=== PATIENT | female | born 1975 | race Caucasian/White ===

== ENCOUNTER 2016-12-04 08:48 | Emergency (ER) | payer OTHER ==
[2016-12-04] MEDS ORDERED: SODIUM CHLORIDE 0.9% 1,000 ML IV STA (09:57)
[2016-12-04] MEDS ORDERED: METOCLOPRAMIDE 5 MG/ML 2 ML VIAL IVP STA (09:57)
[2016-12-04] MEDS ORDERED: DICYCLOMINE 10 MG/ML 2 ML AMP IM STA (09:57)
[2016-12-04] MEDS ORDERED: RX INFO: IV CONTRAST WAS GIVEN 1 EACH MISC MISCELLANE PRN (10:01)
--- NOTE | 2016-12-04 10:01 | ED ---
Abdominal Pain HPI - General Chief Complaint: Abdominal Pain Stated Complaint: Abd pain Time Seen by Provider: 12/04/16 09:52 Source: patient, RN notes reviewed Mode of arrival: ambulatory Limitations: no limitations - History of Present Illness Initial Comments: 41 yo female presents to the ER with of nausea vomiting diarrhea. Patient states this started on Friday night. Patient states she had a crampy like sensation in her abdomen and has had diarrhea multiple times since. Patient denies any blood in the diarrhea. Patient states she's also had nausea and one episode of vomiting but she does continue to be nauseous. Patient states she is not eating anything different and strange. Patient states that she has had her gallbladder out. Patient states that she was concerned due to the increased pain and the nausea as well as the diarrhea so she thought that she should be seen. Patient denies any fever or chills with this. Patient states no Jose the house has similar symptoms. Patient states that her pain is moderate more in the left upper quadrant with a fullness type sensation. Patient denies any recent fever, chills, shortness of breath, chest pain, back pain,vomiting, numbness or tingling, dysuria or hematuria, constipation, headaches or visual changes, or any other current symptoms. - Related Data Home Medications Medication Instructions Recorded Confirmed Verapamil HCl [Verapamil ER] 180 mg PO DAILY 03/27/15 12/04/16 Ranitidine HCl [Zantac] 150 mg PO BID 12/06/15 12/04/16 ALPRAZolam [Xanax] 1 mg PO DAILY PRN 12/04/16 12/04/16 HYDROcodone/APAP 5-325MG [[place] 1 tab PO Q4HR PRN 12/04/16 12/04/16 5-325] Ibuprofen [Motrin] 800 mg PO Q6HR PRN 12/04/16 12/04/16 Loperamide [Imodium] 2 mg PO TID PRN 12/04/16 12/04/16 Losartan/Hydrochlorothiazide 1 tab PO DAILY 12/04/16 12/04/16 [Losartan-Hctz 100-12.5 mg Tab] Multivitamins, Thera [Multivitamin] 1 tab PO DAILY 12/04/16 12/04/16 metFORMIN HCL ER [Glucophage Xr] 500 mg PO DAILY 12/04/16 12/04/16 tiZANidine HCL [Zanaflex] 4 mg PO BID PRN 12/04/16 12/04/16 Previous Rx's Medication Instructions Recorded Propranolol [Inderal] 20 mg PO BID tab 12/07/15 Dicyclomine [Bentyl] 10 mg PO TID #20 capsule 12/04/16 Metoclopramide [Reglan] 10 mg PO ACHS #10 tab 12/04/16 Allergies Allergy/AdvReac Type Severity Reaction Status Date / Time Sulfa (Sulfonamide Allergy Unknown Verified 12/04/16 09:50 Antibiotics) Childhood Review of Systems ROS Statement: Those systems with pertinent positive or pertinent negative responses have been documented in the HPI. ROS Other: All systems not noted in ROS Statement are negative. Past Medical History Past Medical History: Asthma, Hypertension, Mitral Valve Prolapse (MVP) Additional Past Medical History / Comment(s): irregular heart beat History of Any Multi-Drug Resistant Organisms: None Reported Past Surgical History: Section, Cholecystectomy, Orthopedic Surgery Additional Past Surgical History / Comment(s): irregular heart beat, cervical c4 ,5,6,7 Past Anesthesia/Blood Transfusion Reactions: Motion Sickness Additional Past Anesthesia/Blood Transfusion Reaction / Comment(s): CLAUSTERPHOBIA Past Psychological History: Anxiety, Bipolar, Depression Additional Psychological History / Comment(s): PT STATED SHE IS MAINTAINED ON HER MEDS Smoking Status: Former smoker Past Alcohol Use History: Occasional Additional Past Alcohol Use History / Comment(s): QUIT SMOKING 2013 Past Drug Use History: None Reported - Past Family History Father Family Medical History: Myocardial Infarction ([place]), Thyroid Disorder Mother Family Medical History: COPD, Diabetes Mellitus, Hypertension General Exam - General Exam Comments Initial Comments: General: The patient is awake and alert, in no distress, and does not appear acutely ill. Eye: Pupils are equal, round and reactive to light, extra-ocular movements are intact; there is normal conjunctiva bilaterally. No signs of icterus. Ears, nose, mouth and throat: There are moist mucous membranes. Neck: The neck is supple, there is no tenderness. Cardiovascular: There is a regular rate and rhythm. No murmur, rub or gallop is appreciated. Respiratory: Lungs are clear to auscultation, respirations are non-labored, breath sounds are equal. No wheezes, stridor, rales, or rhonchi. Gastrointestinal: Soft, non-distended, non-tender abdomen without masses or organomegaly noted. There is no rebound or guarding present. No CVA tenderness. Bowel sounds are unremarkable. Back: There is no tenderness to palpation in the midline. There is no obvious deformity. No rashes noted. Musculoskeletal: Normal ROM, no tenderness, There is no pedal edema. There is no calf tenderness or swelling. Sensation intact. Pulses equal bilaterally 2+. Neurological: CN II-XII intact, There are no obvious motor or sensory deficits. Coordination appears grossly intact. Speech is normal. Skin: Skin is warm and dry and no rashes or lesions are noted. Psychiatric: Cooperative, appropriate mood & affect, normal judgment. Limitations: no limitations Course Vital Signs 12/04/16 12/04/16 09:29 11:01 Temperature 97.7 F 97.9 F Pulse Rate 74 95 Respiratory 20 14 Rate Blood Pressure 146/85 145/71 O2 Sat by Pulse 98 99 Oximetry Medical Decision Making - Medical Decision Making 41-year-old female presents emergency Department chief complaint of abdominal pain nausea vomiting diarrhea. At this time patient is reassessed in the room and states that she is feeling much better. At this time patient's CAT scan is reviewed that does show anterolateral otitis. At this time we discussed we will start patient on Bentyl as well as nausea medication. We discussed return parameters and follow-up. Patient stated that she understood she states that she is feeling much better at this time. She will be discharged home. - Lab Data Result diagrams: 12/04/16 10:19 12/04/16 10:19 Lab Results 12/04/16 12/04/16 12/04/16 Range/Units 10:00 10:00 10:19 WBC (3.8-10.6) k/uL RBC (3.80-5.40) m/uL Hgb (11.4-16.0) gm/dL Hct (34.0-46.0) % MCV (80.0-100.0) fL MCH (25.0-35.0) pg MCHC (31.0-37.0) g/dL RDW (11.5-15.5) % Plt Count (150-450) k/uL Neutrophils % % Lymphocytes % % Monocytes % % Eosinophils % % Basophils % % Neutrophils # (1.3-7.7) k/uL Lymphocytes # (1.0-4.8) k/uL Monocytes # (0-1.0) k/uL Eosinophils # (0-0.7) k/uL Basophils # (0-0.2) k/uL Sodium 140 (137-145) mmol/L Potassium 3.7 (3.5-5.1) mmol/L Chloride 105 (98-107) mmol/L Carbon Dioxide 24 (22-30) mmol/L Anion Gap 11 mmol/L BUN 9 (7-17) mg/dL Creatinine 0.68 (0.52-1.04) mg/dL Est GFR (MDRD) Af Amer >60 (>60 ml/min/1.73 sqM) Est GFR (MDRD) Non-Af >60 (>60 ml/min/1.73 sqM) Glucose 154 H (74-99) mg/dL Calcium 9.3 (8.4-10.2) mg/dL Total Bilirubin 1.8 H (0.2-1.3) mg/dL AST 367 H (14-36) U/L ALT 207 H (9-52) U/L Alkaline Phosphatase 118 (38-126) U/L Total Protein 7.0 (6.3-8.2) g/dL Albumin 4.0 (3.5-5.0) g/dL Amylase <30 L (30-110) U/L Lipase 191 (23-300) U/L Urine Color Yellow Urine Appearance Clear (Clear) Urine pH 5.0 (5.0-8.0) Ur Specific [place] 1.007 (1.001-1.035) Urine Protein Negative (Negative) Urine Glucose (UA) Negative (Negative) Urine Ketones Negative (Negative) Urine Blood Negative (Negative) Urine Nitrate Negative (Negative) Urine Bilirubin Negative (Negative) Urine Urobilinogen <2.0 (<2.0) mg/dL Ur Leukocyte Esterase Negative (Negative) Urine HCG, Qual Not Detected (Not Detectd) 12/04/16 Range/Units 10:19 WBC 5.5 (3.8-10.6) k/uL RBC 4.54 (3.80-5.40) m/uL Hgb 13.1 (11.4-16.0) gm/dL Hct 38.9 (34.0-46.0) % MCV 85.7 (80.0-100.0) fL MCH 28.7 (25.0-35.0) pg MCHC 33.5 (31.0-37.0) g/dL RDW 13.3 (11.5-15.5) % Plt Count 290 (150-450) k/uL Neutrophils % 59 % Lymphocytes % 30 % Monocytes % 5 % Eosinophils % 2 % Basophils % 1 % Neutrophils # 3.2 (1.3-7.7) k/uL Lymphocytes # 1.7 (1.0-4.8) k/uL Monocytes # 0.3 (0-1.0) k/uL Eosinophils # 0.1 (0-0.7) k/uL Basophils # 0.0 (0-0.2) k/uL Sodium (137-145) mmol/L Potassium (3.5-5.1) mmol/L Chloride (98-107) mmol/L Carbon Dioxide (22-30) mmol/L Anion Gap mmol/L BUN (7-17) mg/dL Creatinine (0.52-1.04) mg/dL Est GFR (MDRD) Af Amer (>60 ml/min/1.73 sqM) Est GFR (MDRD) Non-Af (>60 ml/min/1.73 sqM) Glucose (74-99) mg/dL Calcium (8.4-10.2) mg/dL Total Bilirubin (0.2-1.3) mg/dL AST (14-36) U/L ALT (9-52) U/L Alkaline Phosphatase (38-126) U/L Total Protein (6.3-8.2) g/dL Albumin (3.5-5.0) g/dL Amylase (30-110) U/L Lipase (23-300) U/L Urine Color Urine Appearance (Clear) Urine pH (5.0-8.0) Ur Specific [place] (1.001-1.035) Urine Protein (Negative) Urine Glucose (UA) (Negative) Urine Ketones (Negative) Urine Blood (Negative) Urine Nitrate (Negative) Urine Bilirubin (Negative) Urine Urobilinogen (<2.0) mg/dL Ur Leukocyte Esterase (Negative) Urine HCG, Qual (Not Detectd) - Radiology Data Radiology results: report reviewed, image reviewed Disposition Clinical Impression: Enteritis Disposition: HOME SELF-CARE Condition: Stable Instructions: Gastroenteritis (ED) Additional Instructions: Please use medication as discussed. Please follow up with family doctor if symptoms have not improved over the next two days. Please return to the emergency room if your symptoms increase or worsen or for any other concerns. Prescriptions: Dicyclomine [Bentyl] 10 mg PO TID #20 capsule Metoclopramide [Reglan] 10 mg PO ACHS #10 tab Referrals: Bertha Paulino MD [Primary Care Provider] - 1-2 days Time of Disposition: 12:14
[2016-12-04 10:36] LABS: Basophils % (A) 1 %; CHCM 35.2; Eosinophils # (A) 0.1 k/uL (0-0.7); Eosinophils % (A) 2 %; HCT 38.9 % (34.0-46.0); HDW 3.37; HGB 13.1 gm/dL (11.4-16.0); Luc # (Auto) 0.16; Luc % (Auto) 3; Lymphocytes # (A) 1.7 k/uL (1.0-4.8); Lymphocytes % (A) 30 %; MCH 28.7 pg (25.0-35.0); MCHC 33.5 g/dL (31.0-37.0); MCV 85.7 fL (80.0-100.0); Mean Platelet Volume 6.5; Monocytes # (A) 0.3 k/uL (0-1.0); Monocytes % (A) 5 %; Neutrophils # (A) 3.2 k/uL (1.3-7.7); Neutrophils % (A) 59 %; RBC 4.54 m/uL (3.80-5.40); RDW 13.3 % (11.5-15.5); WBC 5.5 k/uL (3.8-10.6); WBC (Perox) 5.59
[2016-12-04 10:38] LABS: Appearance,Urine Clear (Clear); Bilirubin,Urine Negative (Negative); Glucose,Urine (UA) Negative (Negative); Ketones,Urine Negative (Negative); Leukocyte Esterase,Urine Negative (Negative); Nitrite,Urine Negative (Negative); Protein,Urine Negative (Negative); Specific Gravity,Urine 1.007 (1.001-1.035); UA Billing (MACRO vs. MICRO) CHEM; Urobilinogen,Urine <2.0 mg/dL (<2.0)
[2016-12-04 10:46] LABS: ALT 207 U/L (9-52); AST 367 U/L (14-36); Alkaline Phosphatase 118 U/L (38-126); Amylase <30 U/L (30-110); Anion Gap 11 mmol/L; Blood Urea Nitrogen 9 mg/dL (7-17); Calcium 9.3 mg/dL (8.4-10.2); Carbon Dioxide 24 mmol/L (22-30); Chloride 105 mmol/L (98-107); Glucose 154 mg/dL (74-99); Non-African American GFR(MDRD) >60 (>60 ml/min/1.73 sqM); Potassium 3.7 mmol/L (3.5-5.1); Sodium 140 mmol/L (137-145); Total Bilirubin 1.8 mg/dL (0.2-1.3)
--- NOTE | 2016-12-04 11:49 | CT ---
EXAMINATION TYPE: CT abdomen pelvis w con DATE OF EXAM: 12/04/2016 11:38 AM COMPARISON: NONE HISTORY: 41-year-old female with mid abdomen pain radiating to the left. TECHNIQUE: Contiguous axial scanning of the abdomen and pelvis following administration of 100 ml Omn ipaque 300 IV contrast. Delayed images through the kidneys and coronal/sagittal reconstructions perf ormed. CT DLP: 2207.4 mGycm Automated exposure control for dose reduction was used. FINDINGS: Heart is normal size without pericardial effusion. Lung bases clear without pleural effusion. The liver is borderline enlarged at 17.8 cm. No focal liver lesion seen. No biliary ductal dilatation . Cholecystectomy clips are present. Adrenal glands, kidneys, spleen, and pancreas are within normal limits. No dilated small bowel, free fluid, or free air. Normal appendix. Scattered mild stool without torrey lonic inflammatory change Numerous nonenlarged and borderline to mildly enlarged mesenteric lymph nodes measuring up to 8 mm. There is a small fatty umbilical hernia. Bladder is urine distended. Uterus and both ovaries are visualized. There is a prominent 9 mm left pe rirectal lymph node. No abnormal fluid collection in the pelvis or other pelvic lymphadenopathy seen. Bones: Degenerative changes in the lumbar spine with the greatest degenerative disc disease at L3-L4 with disc bulge narrowing the spinal canal. No osseous destructive process. IMPRESSION: 1. NUMEROUS NONENLARGED AND BORDERLINE TO MILDLY ENLARGED MESENTERIC LYMPH NODES MEASURING UP TO 8 MM ARE PROBABLY REACTIVE/POST INFLAMMATORY SUCH FROM AN ENTERITIS OR MESENTERIC ADENITIS. 2. SMALL FATTY UMBILICAL HERNIA. 3. BORDERLINE HEPATOMEGALY. THERE MAY BE SOME UNDERLYING FATTY INFILTRATION.
[2016-12-04 12:32] VITALS: BP 160/96; PULSE 76; RESP 16; TEMP 97.8
== END 2016-12-04 12:38 | disposition home or self-care (01) ==
LOC: EC 08:48
DX: K52.9 Noninfective gastroenteritis and colitis, unspecified (principal); I34.1 Nonrheumatic mitral (valve) prolapse; K42.9 Umbilical hernia without obstruction or gangrene; I10 Essential (primary) hypertension; I49.9 Cardiac arrhythmia, unspecified; Z88.2 Allergy status to sulfonamides; Z79.84 Long term (current) use of oral hypoglycemic drugs; Z87.891 Personal history of nicotine dependence; Z79.899 Other long term (current) drug therapy
CPT/HCPCS: 99284; 96372; 96374; 96361; 36415; 80053; 82150; 83690; 85025; 81003; 81025; 87040; 87086; 74177; J0500; J2765; Q9967

== ENCOUNTER → 2017-08-29 | Outpatient (CLI) | payer OTHER ==
[2017-08-29 20:48] LABS: Blood Urea Nitrogen 17 mg/dL (7-17); Non-African American GFR(MDRD) >60 (>60 ml/min/1.73 sqM)
--- NOTE | 2017-08-29 23:31 | MR ---
EXAMINATION TYPE: MR cervical spine wo/w con DATE OF EXAM: 08/29/2017 COMPARISON: 07/14/2014 HISTORY: Cervicalgia TECHNIQUE: Multiplanar, multisequence images of the cervical spine were acquired utilizing 12 mL intravenous Felix avist gadolinium contrast. Diffusion weighted imaging was performed. Vertebra have normal alignment. There is metal artifact from the multilevel anterior fusion surgery t hat obscures the bony detail. I see no focal bone destruction. On the T2 images there is very subtle increased signal in the cervical spinal cord at C5-C6 level. I see no discrete mass in the cord. There is posterior disc bulging at C3-4. There is no spinal stenosi s. There is no cervical paraspinal mass. The contrast images show no pathologic enhancement. Brainste m appears normal. IMPRESSION: Multilevel fusion surgery. There is evidence of mild myelomalacia in the cervical spinal cord at C5-C 6 level similar to old exam. There is relief of the spinal stenosis at C4-5 C5-6 C6-7 since last exam before the surgery. There is new mild posterior disc herniation at C3-4. There is adequate spinal canal and no significan t spinal stenosis seen at C3-4. The canal however is narrowed to 7 mm. There is small posterior left-sided disc herniation at T1-T2 that appears stable.
== END | disposition home or self-care (01) ==
LOC: RADMRIMAIN 20:02
PROVIDERS: ATTEND Nurse Practitioner Acute Care
DX: M48.02 Spinal stenosis, cervical region (principal); M50.21 Other cervical disc displacement, high cervical region; M96.1 Postlaminectomy syndrome, not elsewhere classified; G95.89 Other specified diseases of spinal cord; Z98.1 Arthrodesis status
CPT/HCPCS: 82565; 84520; 72156; A9581

== ENCOUNTER → 2018-01-15 | Outpatient (CLI) | payer OTHER ==
[2018-01-15 10:09] LABS: Basophils # (A) 0.1 k/uL (0-0.2); Basophils % (A) 1 %; Eosinophils # (A) 0.2 k/uL (0-0.7); Eosinophils % (A) 3 %; HCT 41.6 % (34.0-46.0); HGB 14.3 gm/dL (11.4-16.0); Lymphocytes # (A) 3.2 k/uL (1.0-4.8); Lymphocytes % (A) 48 %; MCH 29.9 pg (25.0-35.0); MCHC 34.3 g/dL (31.0-37.0); MCV 87.1 fL (80.0-100.0); Mean Platelet Volume 6.6; Monocytes # (A) 0.4 k/uL (0-1.0); Monocytes % (A) 6 %; Neutrophils # (A) 2.7 k/uL (1.3-7.7); Neutrophils % (A) 40 %; Platelet Count 316 k/uL (150-450); RBC 4.77 m/uL (3.80-5.40); RDW 13.1 % (11.5-15.5); WBC 6.7 k/uL (3.8-10.6)
[2018-01-15 10:32] LABS: ALT 28 U/L (9-52); AST 19 U/L (14-36); Albumin 4.1 g/dL (3.5-5.0); Alkaline Phosphatase 72 U/L (38-126); Anion Gap 12 mmol/L; Blood Urea Nitrogen 13 mg/dL (7-17); Calcium 9.8 mg/dL (8.4-10.2); Carbon Dioxide 28 mmol/L (22-30); Chloride 100 mmol/L (98-107); Glucose 182 mg/dL (74-99); Potassium 3.8 mmol/L (3.5-5.1); Sodium 140 mmol/L (137-145); Total Bilirubin 0.4 mg/dL (0.2-1.3)
[2018-01-15 10:48] LABS: T4, Free (Free Thyroxine) 1.68 ng/dL (0.78-2.19)
[2018-01-15 16:34] LABS: Rheumatoid Factor 6 IU/mL (0-15)
== END | disposition home or self-care (01) ==
LOC: LABWHC1 09:32
PROVIDERS: ATTEND Psychiatry & Neurology Neurology
DX: M13.0 Polyarthritis, unspecified (principal); E11.65 Type 2 diabetes mellitus with hyperglycemia; E55.9 Vitamin D deficiency, unspecified
CPT/HCPCS: 36415; 80053; 82306; 82607; 83036; 84439; 84443; 84481; 85025; 86038; 86431

== ENCOUNTER 2018-06-30 10:44 | Emergency (ER) | payer OTHER ==
[2018-06-30 11:12] VITALS: RESP 18
[2018-06-30] MEDS ORDERED: ASPIRIN 81 MG PO STA (11:24)
[2018-06-30] MEDS ORDERED: NITROGLYCERIN SL TABS 0.4 MG TAB SUBLINGUAL STA ×3 (11:24)
--- NOTE | 2018-06-30 11:28 | ED ---
General Adult HPI - General Chief complaint: Chest Pain Stated complaint: chest pain Time Seen by Provider: 06/30/18 11:14 Source: patient, RN notes reviewed Mode of arrival: ambulatory Limitations: no limitations - History of Present Illness Initial comments: Patient is a pleasant 43-year-old female presenting to the emergency department with complaints of chest discomfort. Patient has had discomfort of her lower chest and upper abdomen region for the past 5 days. Discomfort has been moderate and currently is rated 6/10. Discomfort is hard to describe. No associated dyspnea, nausea, or diaphoresis. Patient sometimes states positions me make it worse or deep breaths. This morning patient had more tightness in her upper chest with mild associated dyspnea and tingling of her left arm. That has now resolved. No history of similar symptoms previously. - Related Data Home Medications Medication Instructions Recorded Confirmed Ranitidine HCl [Zantac] 150 mg PO BID 12/06/15 06/30/18 Losartan/Hydrochlorothiazide 1 tab PO DAILY 12/04/16 06/30/18 [Losartan-Hctz 100-12.5 mg Tab] Multivitamins, Thera [Multivitamin] 1 tab PO DAILY 12/04/16 06/30/18 metFORMIN HCL ER [Glucophage Xr] 500 mg PO DAILY 12/04/16 06/30/18 HYDROcodone/APAP 7.5-325MG [[place] 1 tab PO TID PRN 06/30/18 06/30/18 7.5-325] Ibuprofen [Motrin] 800 mg PO TID PRN 06/30/18 06/30/18 Verapamil HCl [Verapamil ER] 240 mg PO DAILY 06/30/18 06/30/18 cloNIDine HCL [Catapres] 0.1 mg PO BID 06/30/18 06/30/18 Previous Rx's Medication Instructions Recorded Propranolol [Inderal] 20 mg PO BID tab 12/07/15 Allergies Allergy/AdvReac Type Severity Reaction Status Date / Time Sulfa (Sulfonamide Allergy Unknown Verified 06/30/18 11:24 Antibiotics) Childhood Review of Systems ROS Statement: Those systems with pertinent positive or pertinent negative responses have been documented in the HPI. ROS Other: All systems not noted in ROS Statement are negative. Constitutional: Denies: fever Eyes: Denies: eye pain ENT: Denies: throat pain Respiratory: Denies: cough Cardiovascular: Reports: chest pain Endocrine: Denies: fatigue Gastrointestinal: Reports: as per HPI. Denies: vomiting Genitourinary: Denies: dysuria Musculoskeletal: Denies: back pain Skin: Denies: rash Neurological: Denies: weakness Past Medical History Past Medical History: Asthma, Hypertension, Mitral Valve Prolapse (MVP) Additional Past Medical History / Comment(s): irregular heart beat History of Any Multi-Drug Resistant Organisms: None Reported Past Surgical History: Section, Cholecystectomy, Orthopedic Surgery Additional Past Surgical History / Comment(s): irregular heart beat, cervical c4 ,5,6,7 Past Anesthesia/Blood Transfusion Reactions: Motion Sickness Additional Past Anesthesia/Blood Transfusion Reaction / Comment(s): CLAUSTERPHOBIA Past Psychological History: Anxiety, Bipolar, Depression Smoking Status: Current some day smoker Past Alcohol Use History: Occasional Past Drug Use History: None Reported - Past Family History Father Family Medical History: Myocardial Infarction ([place]), Thyroid Disorder Mother Family Medical History: COPD, Diabetes Mellitus, Hypertension General Exam Limitations: no limitations General appearance: alert, in no apparent distress Head exam: Present: atraumatic Eye exam: Present: normal appearance, PERRL ENT exam: Present: normal oropharynx Neck exam: Present: normal inspection Respiratory exam: Present: normal lung sounds bilaterally. Absent: chest wall tenderness Cardiovascular Exam: Present: regular rate, normal rhythm Expanded Peripheral pulses: 2+: Radial (R), Radial (L), Dorsalis Pedis (R), Dorsalis Pedis (L) GI/Abdominal exam: Present: soft, tenderness (Mild tenderness in the epigastric region), normal bowel sounds. Absent: distended, guarding, rebound, rigid, pulsatile mass Extremities exam: Present: normal inspection. Absent: pedal edema, calf tenderness Neurological exam: Present: alert Psychiatric exam: Present: normal affect, normal mood Skin exam: Present: normal color Course Vital Signs 06/30/18 06/30/18 06/30/18 10:46 11:11 11:54 Temperature 98.4 F Pulse Rate 74 72 72 Pulse Rate [ 73 [employer] ] Respiratory 16 18 18 Rate Blood Pressure 129/79 138/83 126/67 O2 Sat by Pulse 98 99 96 Oximetry EKG Findings - EKG Comments: EKG Findings:: Normal sinus rhythm 70. IN 136. QRS 92. QT 422. QTC 445. Normal axis. Normal QRS. No acute ST change. Downward QRS and T-wave in lead V5, possibly Placement. Medical Decision Making - Medical Decision Making Patient reevaluated and resting comfortably in bed. Symptoms did significantly improved with nitroglycerin. Patient updated on results and plan. Case was discussed in detail with Dr. Torres, who will admit for Dr. Paulino. - Lab Data Result diagrams: 06/30/18 11:10 06/30/18 11:10 Lab Results 06/30/18 06/30/18 06/30/18 Range/Units 11:10 11:10 11:10 WBC 6.6 (3.8-10.6) k/uL RBC 4.48 (3.80-5.40) m/uL Hgb 13.5 (11.4-16.0) gm/dL Hct 39.4 (34.0-46.0) % MCV 87.9 (80.0-100.0) fL MCH 30.1 (25.0-35.0) pg MCHC 34.2 (31.0-37.0) g/dL RDW 13.6 (11.5-15.5) % Plt Count 281 (150-450) k/uL Neutrophils % 53 % Lymphocytes % 32 % Monocytes % 6 % Eosinophils % 6 % Basophils % 1 % Neutrophils # 3.5 (1.3-7.7) k/uL Lymphocytes # 2.1 (1.0-4.8) k/uL Monocytes # 0.4 (0-1.0) k/uL Eosinophils # 0.4 (0-0.7) k/uL Basophils # 0.0 (0-0.2) k/uL PT (9.0-12.0) sec INR (<1.2) APTT (22.0-30.0) sec D-Dimer (<0.60) mg/L FEU Sodium 140 (137-145) mmol/L Potassium 3.9 (3.5-5.1) mmol/L Chloride 108 H (98-107) mmol/L Carbon Dioxide 24 (22-30) mmol/L Anion Gap 8 mmol/L BUN 12 (7-17) mg/dL Creatinine 0.50 L (0.52-1.04) mg/dL Est GFR (CKD-EPI)AfAm >90 (>60 ml/min/1.73 sqM) Est GFR (CKD-EPI)NonAf >90 (>60 ml/min/1.73 sqM) Glucose 147 H (74-99) mg/dL Calcium 9.4 (8.4-10.2) mg/dL Magnesium 1.7 (1.6-2.3) mg/dL Total Bilirubin 0.6 (0.2-1.3) mg/dL AST 23 (14-36) U/L ALT 38 (9-52) U/L Alkaline Phosphatase 49 (38-126) U/L Total Creatine Kinase 71 (30-135) U/L CK-MB (CK-2) 0.9 (0.0-2.4) ng/mL CK-MB (CK-2) Rel Index 1.3 Troponin I <0.012 (0.000-0.034) ng/mL Total Protein 6.4 (6.3-8.2) g/dL Albumin 3.8 (3.5-5.0) g/dL Amylase 51 (30-110) U/L Lipase 183 (23-300) U/L 06/30/18 Range/Units 11:10 WBC (3.8-10.6) k/uL RBC (3.80-5.40) m/uL Hgb (11.4-16.0) gm/dL Hct (34.0-46.0) % MCV (80.0-100.0) fL MCH (25.0-35.0) pg MCHC (31.0-37.0) g/dL RDW (11.5-15.5) % Plt Count (150-450) k/uL Neutrophils % % Lymphocytes % % Monocytes % % Eosinophils % % Basophils % % Neutrophils # (1.3-7.7) k/uL Lymphocytes # (1.0-4.8) k/uL Monocytes # (0-1.0) k/uL Eosinophils # (0-0.7) k/uL Basophils # (0-0.2) k/uL PT 9.7 (9.0-12.0) sec INR 1.0 (<1.2) APTT 22.7 (22.0-30.0) sec D-Dimer 0.39 (<0.60) mg/L FEU Sodium (137-145) mmol/L Potassium (3.5-5.1) mmol/L Chloride (98-107) mmol/L Carbon Dioxide (22-30) mmol/L Anion Gap mmol/L BUN (7-17) mg/dL Creatinine (0.52-1.04) mg/dL Est GFR (CKD-EPI)AfAm (>60 ml/min/1.73 sqM) Est GFR (CKD-EPI)NonAf (>60 ml/min/1.73 sqM) Glucose (74-99) mg/dL Calcium (8.4-10.2) mg/dL Magnesium (1.6-2.3) mg/dL Total Bilirubin (0.2-1.3) mg/dL AST (14-36) U/L ALT (9-52) U/L Alkaline Phosphatase (38-126) U/L Total Creatine Kinase (30-135) U/L CK-MB (CK-2) (0.0-2.4) ng/mL CK-MB (CK-2) Rel Index Troponin I (0.000-0.034) ng/mL Total Protein (6.3-8.2) g/dL Albumin (3.5-5.0) g/dL Amylase (30-110) U/L Lipase (23-300) U/L - Radiology Data Radiology results: image reviewed (Chest and abdominal x-ray revealed no acute process.) Disposition Clinical Impression: Chest pain Disposition: ADMITTED IP TO THIS HOSP Is patient prescribed a controlled substance at d/c from ED?: No Referrals: Bertha Paulino MD [Primary Care Provider] - 1-2 days Decision Time: 13:24
[2018-06-30 11:35] LABS: Basophils % (A) 1 %; Eosinophils # (A) 0.4 k/uL (0-0.7); Eosinophils % (A) 6 %; HCT 39.4 % (34.0-46.0); HGB 13.5 gm/dL (11.4-16.0); Lymphocytes # (A) 2.1 k/uL (1.0-4.8); Lymphocytes % (A) 32 %; MCH 30.1 pg (25.0-35.0); MCHC 34.2 g/dL (31.0-37.0); MCV 87.9 fL (80.0-100.0); Mean Platelet Volume 6.9; Monocytes # (A) 0.4 k/uL (0-1.0); Monocytes % (A) 6 %; Neutrophils # (A) 3.5 k/uL (1.3-7.7); Neutrophils % (A) 53 %; Platelet Count 281 k/uL (150-450); RBC 4.48 m/uL (3.80-5.40); RDW 13.6 % (11.5-15.5); WBC 6.6 k/uL (3.8-10.6)
[2018-06-30 11:46] LABS: ALT 38 U/L (9-52); AST 23 U/L (14-36); Albumin 3.8 g/dL (3.5-5.0); Alkaline Phosphatase 49 U/L (38-126); Amylase 51 U/L (30-110); Anion Gap 8 mmol/L; Blood Urea Nitrogen 12 mg/dL (7-17); Calcium 9.4 mg/dL (8.4-10.2); Carbon Dioxide 24 mmol/L (22-30); Chloride 108 mmol/L (98-107); Glucose 147 mg/dL (74-99); Lipase 183 U/L (23-300); Magnesium 1.7 mg/dL (1.6-2.3); Potassium 3.9 mmol/L (3.5-5.1); Sodium 140 mmol/L (137-145); Total Bilirubin 0.6 mg/dL (0.2-1.3); Total Protein 6.4 g/dL (6.3-8.2)
--- NOTE | 2018-06-30 11:55 | XR ---
EXAMINATION TYPE: XR abdomen 1V DATE OF EXAM: 06/30/2018 11:50 AM CLINICAL HISTORY: Epigastric Pain for 4 days. TECHNIQUE: Two Upright KUB images of the abdomen are obtained. COMPARISON: CT abdomen and pelvis December 04, 2016. FINDINGS: Scattered gas is seen in non-distended stomach and small bowel loops. Gas and fecal materia l is seen in non-distended colon. Cholecystectomy clips are present. No suspicious calcifications or pneumoperitoneum is seen. Visualized osseous structures are intact. IMPRESSION: Overall nonobstructive bowel gas pattern.
[2018-06-30 11:59] LABS: Creatine Kinase 71 U/L (30-135)
--- NOTE | 2018-06-30 12:00 | XR ---
EXAMINATION TYPE: XR chest 2V DATE OF EXAM: 06/30/2018 COMPARISON: 12/06/2015 HISTORY: Chest pain TECHNIQUE: Frontal and lateral views of the chest are obtained. FINDINGS: There is no focal air space opacity. No evidence for pneumothorax. No pleural effusion. The cardiac silhouette size is within normal limits. The osseous structures are grossly intact. IMPRESSION: 1. No acute cardiopulmonary process.
[2018-06-30 12:13] LABS: Creatine Kinase MB 0.9 ng/mL (0.0-2.4); Troponin I <0.012 ng/mL (0.000-0.034)
[2018-06-30 12:28] LABS: D-Dimer 0.39 mg/L FEU (<0.60); Partial Thromboplastin Time 22.7 sec (22.0-30.0); Prothrombin Time 9.7 sec (9.0-12.0)
[2018-06-30] MEDS ORDERED: NITROGLYCERIN SL TABS 0.4 MG TAB SUBLINGUAL PRN (13:24)
[2018-06-30 14:18] VITALS: BP 120/71; PULSE 58; TEMP 97.4
[2018-06-30] MEDS ORDERED: NITROGLYCERIN OINT 1 INCH/GM PACKET TOPICAL SCH (18:00)
[2018-07-01] MEDS ORDERED: ASPIRIN 325 MG TAB PO SCH (09:00)
== END 2018-06-30 14:32 | disposition other institution (70) ==
LOC: EC 10:44 → UNDOADMOB 13:24 → 3OBS 13:24 → EC 14:32
DX: R07.89 Other chest pain (principal); R06.00 Dyspnea, unspecified; R19.8 Other specified symptoms and signs involving the digestive system and abdomen; I10 Essential (primary) hypertension; F31.9 Bipolar disorder, unspecified; F41.9 Anxiety disorder, unspecified; F17.200 Nicotine dependence, unspecified, uncomplicated; Z79.84 Long term (current) use of oral hypoglycemic drugs; Z79.899 Other long term (current) drug therapy; Z88.2 Allergy status to sulfonamides; Z82.49 Family history of ischemic heart disease and other diseases of the circulatory system
CPT/HCPCS: 36415; 71046; 74018; 80053; 82150; 82550; 82553; 83690; 83735; 84484; 85025; 85379; 85610; 85730; 93005; 99285

== ENCOUNTER 2018-12-10 22:18 | Emergency (ER) | payer OTHER ==
[2018-12-10 22:28] VITALS: TEMP 98.2
[2018-12-10] MEDS ORDERED: Acetaminophen-Codeine 300-30mg TAB PO STA (22:40)
[2018-12-10] MEDS ORDERED: DIAZEPAM 5 MG/ML 2 ML INJ IM ONE (22:41)
[2018-12-10] MEDS ORDERED: ONDANSETRON 4 MG TAB PO STA (22:51)
--- NOTE | 2018-12-10 23:25 | CT ---
EXAMINATION TYPE: CT brain tyrell wo con DATE OF EXAM: 12/10/2018 COMPARISON: CT brain July 25, 2012 HISTORY: FALL headache. Neck pain. CT DLP: 2777.8 mGycm Automated exposure control for dose reduction was used. TECHNIQUE: CT scan of the head and cervical spine are performed without contrast. FINDINGS: Ventricles of normal size. There is no mass effect nor midline shift. There is no sign of intracranial hemorrhage. The calvarium is intact. Cervical vertebra have fairly normal spacing and alignment. Posterior elements are intact. The skull base is intact. Facet joints are intact. There is multilevel anterior fusion surgery from C4 to C7 ve rtebra. IMPRESSION: Multilevel fusion surgery in the cervical spine. No fracture seen. Negative CT scan of the brain. No acute intracranial abnormality. No change compared to old exam.
--- NOTE | 2018-12-10 23:28 | CT ---
EXAMINATION TYPE: CT thor lumbar spine wo con DATE OF EXAM: 12/10/2018 COMPARISON: None HISTORY: FALL back pain CT DLP: 602 mGycm Automated exposure control for dose reduction was used. FINDINGS: The thoracic and lumbar vertebra have fairly normal spacing and alignment. There is slight narrowing of the L3-4 disc space with spurring of the endplates. There is no thoracic or lumbar paraspinal mass . There is fusion surgery in the lower cervical spine. The posterior elements are intact. I see no fo vasiliy bone destruction. I see no evidence of any significant lumbar bony spinal stenosis. Exam is limit ed slightly by the patient size. Sacroiliac joints appear intact. There is hypertrophic anterior spur ring in the mid and lower thoracic spine. IMPRESSION: MILD SPONDYLOTIC CHANGES. NO FRACTURE SEEN.
--- NOTE | 2018-12-10 23:39 | ED ---
Fall HPI - General Chief Complaint: Fall Stated Complaint: Fall, head injury Time Seen by Provider: 12/10/18 22:30 Source: patient Mode of arrival: ambulatory - History of Present Illness Initial Comments: 43-year-old female past medical history of hypertension, presents today for chief complaint of fall. Patient states that just prior to arrival she was walking outside, when she slipped on snow covered ice. Patient states she fell onto her butt and hit the back of her head. She denies loss of consciousness. Patient denies anticoagulant use. Patient states she has a headache and low back pain that radiated down right leg. Patient denies diplopia, visual changes , vision loss, nausea, vomiting, muscle weakness, loss of sensation of the upper or lower extremities. Patient does admit to neck tenderness, stating she has had chronic neck pain s/p fusion. Remainder of ROS negative, patient denies any hip pain, difficulty ambulating, injury to any other extremity, abdominal or chest trauma.Patient denies any recent fever, chills, shortness of breath, chest pain, abdominal pain, nausea or vomiting, numbness, dysuria or hematuria, constipation or diarrhea, headaches or visual changes, loss of bowel bladder control, urinary retention or numbness of the lower extremities including saddle region or any other complaints. On arrival patient is well- appearing. Ambulatory without difficulty. Patient's vital signs revealed elevated blood pressure, patient states she did not take her nightly meds. - Related Data Home Medications Medication Instructions Recorded Confirmed Ranitidine HCl [Zantac] 150 mg PO BID 12/06/15 12/10/18 Losartan/Hydrochlorothiazide 1 tab PO DAILY 12/04/16 12/10/18 [Losartan-Hctz 100-12.5 mg Tab] Multivitamins, Thera [Multivitamin] 1 tab PO DAILY 12/04/16 12/10/18 metFORMIN HCL ER [Glucophage Xr] 500 mg PO HS 12/04/16 12/10/18 HYDROcodone/APAP 7.5-325MG [[place] 1 tab PO TID PRN 06/30/18 12/10/18 7.5-325] Ibuprofen [Motrin] 800 mg PO TID PRN 06/30/18 12/10/18 Verapamil HCl [Verapamil ER] 240 mg PO HS 06/30/18 12/10/18 Ascorbic Acid [Vitamin C] 500 mg PO DAILY 12/10/18 12/10/18 Vitamin D3(Unknown) 1 tab PO DAILY 12/10/18 12/10/18 Vitamin E 1,000 unit PO DAILY 12/10/18 12/10/18 cloNIDine HCL [Catapres] 0.2 mg PO BID 12/10/18 12/10/18 tiZANidine [Zanaflex] 4 mg PO BID 12/10/18 12/10/18 Previous Rx's Medication Instructions Recorded Propranolol [Inderal] 20 mg PO BID tab 12/07/15 Cyclobenzaprine [Flexeril] 10 mg PO HS 5 Days #5 tab 12/10/18 Allergies Allergy/AdvReac Type Severity Reaction Status Date / Time Sulfa (Sulfonamide Allergy Unknown Verified 12/10/18 23:17 Antibiotics) Childhood Review of Systems ROS Statement: Those systems with pertinent positive or pertinent negative responses have been documented in the HPI. ROS Other: All systems not noted in ROS Statement are negative. Past Medical History Past Medical History: Asthma, Hypertension, Mitral Valve Prolapse (MVP) Additional Past Medical History / Comment(s): irregular heart beat History of Any Multi-Drug Resistant Organisms: None Reported Past Surgical History: Section, Cholecystectomy, Orthopedic Surgery Additional Past Surgical History / Comment(s): irregular heart beat, cervical c4 ,5,6,7 fusion Past Anesthesia/Blood Transfusion Reactions: Motion Sickness Additional Past Anesthesia/Blood Transfusion Reaction / Comment(s): CLAUSTERPHOBIA Past Psychological History: Anxiety, Bipolar, Depression Smoking Status: Current some day smoker Past Alcohol Use History: Rare Past Drug Use History: None Reported - Past Family History Father Family Medical History: Myocardial Infarction ([place]), Thyroid Disorder Mother Family Medical History: COPD, Diabetes Mellitus, Hypertension General Exam - General Exam Comments Initial Comments: General: The patient is awake and alert, in no distress, and does not appear acutely ill. Eye: +3 mm pupils are equal, round and reactive to light, extra-ocular movements are intact. No nystagmus. There is normal conjunctiva bilaterally. No signs of icterus. Ears, nose, mouth and throat: There are moist mucous membranes and no oral lesions. No Rodriguez or raccoon sign. Neck: The neck is supple, there is no tenderness or JVD. Cardiovascular: There is a regular rate and rhythm. No murmur, rub or gallop is appreciated. Respiratory: Lungs are clear to auscultation, respirations are non-labored, breath sounds are equal. No wheezes, stridor, rales, or rhonchi. Present in all lung corado Gastrointestinal: Soft, non-distended, non-tender abdomen without masses or organomegaly noted. There is no rebound or guarding present. Musculoskeletal: Paravertebral tenderness to palpation of the cervical spine. Mild midline tenderness . She has tenderness Full range of motion to forward flexion-extension lateral flexion and rotation. Mild tenderness intermittent of the lower thoracic and lumbar spine. Paravertebral tenderness with palpable muscle spasm of the lumbar spine. Normal ROM of the upper and lower extremities , no tenderness. No tenderness to palpation of the hips and pelvis bilaterally. No pain with a si compression. No internal or external rotation noted or shortening of the legs. Patient is able to without difficulty. Strength 5/5 of the upper and lower extremities. Sensation intact of the upper and lower extremities equal bilaterally. Radial and DP pulses equal bilaterally 2+. No pronator drift. Finger to nose coordinated. Neurological: A&O x 3. CN II-XII intact, There are no obvious motor or sensory deficits. Coordination appears grossly intact. Speech is normal. Skin: Skin is warm and dry and no rashes or lesions are noted. No abrasions or lacerations. Psychiatric: Cooperative, appropriate mood & affect, normal judgment. Limitations: no limitations Course Vital Signs 12/10/18 12/10/18 12/11/18 22:24 23:55 00:44 Temperature 98.2 F Pulse Rate 68 70 72 Respiratory 20 16 18 Rate Blood Pressure 176/103 198/112 177/98 O2 Sat by Pulse 100 98 97 Oximetry Medical Decision Making - Medical Decision Making 43-year-old female presenting for slip on ice. Patient denied chest pain dizziness, shortness breath, dyspnea prior to falling. Patient states it was mechanical nature. Imaging studies negative for acute intracranial or osseous process. Patient neurovascularly intact, well-appearing. No focal neurological deficits on examination. No raccoon or Rodriguez sign. Patient given Tylenol 3 for pain management, she states this helped symptoms. I discussed case with attending provider Dr. Ye at this time we do feel patient is stable for discharge with primary care follow-up. Return parameters were discussed at length with patient who verbalizes understanding. Patient discharged stable condition appearing well. Patient's blood pressures all day, she was given her nightly dose of clonidine, patient states she will take remainder of medications upon arrival home. Disposition Clinical Impression: Fall, Head injury, Low back strain Disposition: HOME SELF-CARE Condition: Good Instructions (If sedation given, give patient instructions): Head Injury (ED), Low Back Strain (ED) Additional Instructions: Please use medication as discussed above and no driving drinking alcohol, operate machinery, using Xanax or opiates while taking Flexeril. Please follow- up with family doctor in the next 2 days. Please return to emergency room if the symptoms increase or worsen or for any other concerns. Prescriptions: Cyclobenzaprine [Flexeril] 10 mg PO HS 5 Days #5 tab Is patient prescribed a controlled substance at d/c from ED?: No Referrals: Bertha Paulino MD [Primary Care Provider] - 1-2 days Time of Disposition: 23:39
[2018-12-11] MEDS ORDERED: cloNIDine HCL 0.2 MG TAB PO STA (00:05)
[2018-12-11 00:45] VITALS: BP 177/98; PULSE 72; RESP 18
== END 2018-12-11 00:50 | disposition home or self-care (01) ==
LOC: EC 22:18
DX: S39.012A Strain of muscle, fascia and tendon of lower back, initial encounter (principal); S09.90XA Unspecified injury of head, initial encounter; M79.604 Pain in right leg; G89.29 Other chronic pain; M54.2 Cervicalgia; I10 Essential (primary) hypertension; F17.200 Nicotine dependence, unspecified, uncomplicated; Z88.2 Allergy status to sulfonamides; Z79.84 Long term (current) use of oral hypoglycemic drugs; Z79.899 Other long term (current) drug therapy; Z86.79 Personal history of other diseases of the circulatory system; Z98.1 Arthrodesis status; Z98.890 Other specified postprocedural states; W00.0XXA Fall on same level due to ice and snow, initial encounter; Y93.01 Activity, walking, marching and hiking; Y92.89 Other specified places as the place of occurrence of the external cause
CPT/HCPCS: 72128; 72125; 72131; 70450; 99283; 96372; J3360

== ENCOUNTER → 2019-05-28 | Outpatient (CLI) | payer BC ==
--- NOTE | 2019-05-28 15:54 | US ---
EXAMINATION TYPE: US thyroid st tissue head/neck DATE OF EXAM: 05/28/2019 COMPARISON: NONE CLINICAL HISTORY: R22.0 SWELLING/MASS. Hx of thyroid nodules. No thyroid medications. GLAND SIZE: Right Lobe: 4.9 x 2.0 x 1.8 cm Overall Parenchyma: heterogenous Left Lobe: 5.5 x 2.5 x 2.4 cm Overall Parenchyma: heterogeneous Isthmus Thickness: 1.3 cm NODULES RIGHT: # of nodules measured on right: Appears heterogenous and enlarged. No prominent nodules see n. LEFT: # of nodules measured on left: 2 Appears enlarged and lobular. Largest measured. 1. 1.4 X 1.3 x 1.3 cm solid nodule at the upper pole with well-defined margins. This nodule is wid e as tall and shows no intranodular vascularity. Prior size: Unable to correlate with prior 2. 1.8 X 1.8 x 1.6 cm solid nodule at the lower medial pole with well-defined margins. This nodule is wider than tall and shows no intranodular vascularity. Prior size: Unable to correlate with prior ISTHMUS: # of nodules measured in the isthmus: 1 1. 1.7 X 2.0 x 1.2 cm solid nodule at the lower aspect with well-defined margins. This nodule is wider than tall and shows intranodular vascularity. Prior size: Unable to correlated with prior Bilateral neck scanned, no evidence of lymphadenopathy. IMPRESSION: 1. Solid bilateral thyroid nodules larger than 1 cm.
== END ==
LOC: RADUSWWP 14:57
PROVIDERS: ATTEND Internal Medicine
DX: E04.2 Nontoxic multinodular goiter (principal); Z88.2 Allergy status to sulfonamides
CPT/HCPCS: 76536

== ENCOUNTER 2022-05-24 11:28 | Emergency (ER) | payer BC, OTHER ==
[2022-05-24] MEDS ORDERED: methylPREDNISolone SOD SUCCI 125 MG/2 ML VIAL IV STA (11:44)
[2022-05-24] MEDS ORDERED: ORPHENADRINE 30 MG/ML 2 ML VIAL IM STA (11:44)
[2022-05-24] MEDS ORDERED: KETOROLAC 15 MG/ML 1 ML VIAL IM STA (11:44)
[2022-05-24] MEDS ORDERED: methylPREDNISolone SOD SUCCI 125 MG/2 ML VIAL IM ONE (11:47)
--- NOTE | 2022-05-24 12:12 | XR ---
EXAMINATION TYPE: XR knee complete RT DATE OF EXAM: 05/24/2022 CLINICAL HISTORY: Fall injury with pain TECHNIQUE: Three views of the right knee are obtained. COMPARISON: None. FINDINGS: There is no acute fracture/dislocation evident in right knee. Moderate to advanced narrowi ng and spurring medial tibiofemoral and patellofemoral compartments. The overlying soft tissue appea rs unremarkable. IMPRESSION: There is no acute fracture or dislocation in the right knee.
--- NOTE | 2022-05-24 12:14 | XR ---
EXAMINATION TYPE: XR Hip RT and AP Pelvis DATE OF EXAM: 05/24/2022 COMPARISON: CT abdomen and pelvis 2017 HISTORY: Recent fall injury with pain TECHNIQUE: A single AP view of the pelvis is obtained. Two views of the right hip are obtained. FINDINGS: There is no acute fracture/dislocation evident in the pelvis. The hip and sacroiliac join ts appear symmetric and unremarkable. Pubic symphysis is intact. The overlying soft tissue appears u nremarkable. Two views of right hip show no acute fracture or dislocation. No focal lytic or sclerotic lesion see n in the proximal right femur. The overlying soft tissue is unremarkable. IMPRESSION: There is no acute fracture or dislocation in the pelvis or right hip.
--- NOTE | 2022-05-24 12:33 | XR ---
EXAMINATION TYPE: XR lumbosacral spine 5 views DATE OF EXAM: 05/24/2022 Comparison: None Clinical History: 47-year-old female with pain after fall Findings: Cholecystectomy clips. 5 lumbar type vertebral bodies. Facet arthropathy lower lumbar spine. Mild mul tilevel degenerative disc disease. More moderate at L3-L4 with disc space narrowing. Vertebral body h eights are preserved and alignment is maintained. Impression: 1. Facet arthropathy mid to lower lumbar spine. Mild multilevel degenerative disc disease, more moder ate at L3-L4. 2. No vertebral compression collapse or malalignment.
--- NOTE | 2022-05-24 12:57 | ED ---
Lower Extremity Injury HPI - General Chief Complaint: Extremity Injury, Lower Stated Complaint: Hip/knee pain/fall Time Seen by Provider: 05/24/22 11:34 Source: patient Mode of arrival: ambulatory Limitations: no limitations - History of Present Illness Initial Comments: Patient is a 47-year-old female who presents to the emergency department with a chief complaint of right hip and right knee pain. Patient states she tripped and fell on her porch 2 days ago landing on her right hip and knee. Patient denies head trauma and blood thinner use. Patient was able to ambulate after fall. Patient endorses right hip and right knee pain as well as a shooting sensation down the front of her right lower extremity down the thigh and into the right leg. Patient states she does have history of low back pain and is unsure if her back pain has changed since the fall however states the shooting pain in the leg is new to her. Patient denies leg weakness, numbness, and tingling. Denies numbness and tingling in the groin and buttock region. Denies loss of bowel or bladder control. Patient states she has been taking Motrin 800 with little relief. - Related Data Home Medications Medication Instructions Recorded Confirmed Losartan/Hydrochlorothiazide 1 tab PO DAILY 12/04/16 05/12/19 [Losartan-Hctz 100-12.5 mg Tab] Multivitamins, Thera [Multivitamin] 1 tab PO DAILY 12/04/16 05/12/19 metFORMIN HCL ER [Glucophage Xr] 500 mg PO HS 12/04/16 05/12/19 HYDROcodone/APAP 7.5-325MG [[place] 1 tab PO TID PRN 06/30/18 05/12/19 7.5-325] Verapamil HCl [Verapamil ER] 240 mg PO HS 06/30/18 05/12/19 cloNIDine HCL [Catapres] 0.2 mg PO TID 12/10/18 05/12/19 tiZANidine [Zanaflex] 4 mg PO HS 12/10/18 05/12/19 Cholecalciferol [Vitamin D3 (25 1,000 unit PO DAILY 05/12/19 05/12/19 Mcg = 1000 Iu)] Ferrous Sulfate [Feosol] 325 mg PO DAILY 05/12/19 05/12/19 Furosemide [Lasix] 20 mg PO DAILY 05/12/19 05/12/19 Potassium Chloride ER [K-Dur 10] 10 meq PO DAILY 05/12/19 05/12/19 Topiramate [Topamax] 25 mg PO HS 05/12/19 05/12/19 Previous Rx's Medication Instructions Recorded Propranolol [Inderal] 20 mg PO BID tab 12/07/15 Ondansetron Odt [Zofran Odt] 4 mg PO Q8HR PRN #7 tab 05/12/19 Cyclobenzaprine [Flexeril] 10 mg PO TID PRN #15 tab 05/24/22 HYDROcodone/APAP 10-325MG [[place] 1 tab PO Q4HR PRN 3 Days #18 tab 05/24/22 10-325] predniSONE 50 mg PO DAILY #5 tab 05/24/22 Allergies Allergy/AdvReac Type Severity Reaction Status Date / Time Sulfa (Sulfonamide Allergy Unknown Verified 05/24/22 11:31 Antibiotics) Childhood adhesive tape AdvReac Rash/Hives Verified 05/24/22 11:31 Review of Systems ROS Statement: Those systems with pertinent positive or pertinent negative responses have been documented in the HPI. ROS Other: All systems not noted in ROS Statement are negative. Past Medical History Past Medical History: Asthma, Hypertension, Mitral Valve Prolapse (MVP) Additional Past Medical History / Comment(s): irregular heart beat History of Any Multi-Drug Resistant Organisms: None Reported Past Surgical History: Section, Cholecystectomy, Orthopedic Surgery Additional Past Surgical History / Comment(s): irregular heart beat, cervical c4,5,6,7 fusion Past Anesthesia/Blood Transfusion Reactions: Motion Sickness Additional Past Anesthesia/Blood Transfusion Reaction / Comment(s): CLAUSTERPHOBIA Past Psychological History: Anxiety, Bipolar, Depression Smoking Status: Former smoker Past Alcohol Use History: Rare Past Drug Use History: Marijuana - Past Family History Father Family Medical History: Myocardial Infarction ([place]), Thyroid Disorder Mother Family Medical History: COPD, Diabetes Mellitus, Hypertension General Exam Limitations: no limitations General appearance: alert, in no apparent distress Head exam: Present: atraumatic, normocephalic, normal inspection Eye exam: Present: normal appearance, PERRL, EOMI. Absent: scleral icterus, conjunctival injection, periorbital swelling Respiratory exam: Present: normal lung sounds bilaterally. Absent: respiratory distress, wheezes, rales, rhonchi, stridor Cardiovascular Exam: Present: regular rate, normal rhythm, normal heart sounds. Absent: systolic murmur, diastolic murmur, rubs, gallop, clicks GI/Abdominal exam: Present: soft, normal bowel sounds. Absent: distended, tenderness, guarding, rebound, rigid Right Hip exam: Present: normal inspection, full ROM, tenderness (laterally ), pelvic stability. Absent: swelling, abrasion, laceration, ecchymosis, deformity, crepitus, dislocation, erythema, external rotation, internal rotation, shortening Upper Leg exam: Present: normal inspection, full ROM. Absent: tenderness, swelling Knee exam: Present: normal inspection, full ROM, tenderness (anterior on knee cap ), full knee extension. Absent: swelling, abrasion, laceration, ecchymosis, deformity, crepitus, dislocation, erythema, effusion, posterior draw sign, pain/laxity with valgus, pain/laxity with varus Lower Leg exam: Present: normal inspection, full ROM. Absent: tenderness, swelling, abrasion, laceration, ecchymosis, deformity, crepitus, dislocation Back exam: Present: normal inspection, full ROM. Absent: tenderness, paraspinal tenderness, vertebral tenderness Course Vital Signs 05/24/22 05/24/22 11:29 13:37 Temperature 97.6 F 97.2 F L Pulse Rate 97 78 Respiratory 16 18 Rate Blood Pressure 161/100 120/78 O2 Sat by Pulse 95 98 Oximetry Medical Decision Making - Medical Decision Making This is a 47-year-old female who presents with right hip and right knee pain after fall 2 days ago. Thorough history and examination were performed. Patient has new onset radicular symptoms of the right lower extremity. No saddle anesthesia. No loss of bowel or bladder control. No neurological deficits are appreciated on exam. Neurovascularly intact. Full range of motion. Patient has tenderness of the lateral right hip without obvious deformity or overlying erythema, swelling, or ecchymosis. The right knee Is t marcello with palpation without erythema, swelling, or ecchymosis. Patient given Norflex, Toradol, and Solu-Medrol. Right hip/pelvis and right knee x-ray are negative for acute process. Lumbar x-ray shows facet arthroplasty in the mid to lower lumbar spine and mild multi level degenerative disc disease, more moderate at L3 to L4 without acute process. On reevaluation patient states her symptoms have improved dramatically with substantial improvement of radicular symptoms. Results discussed with patient. Patient will be discharged with symptomatic management and prednisone. She is instructed to follow-up with facility practice specialist in 1-2 weeks if her radicular symptoms do not improve. Return parameters discussed. Patient verbalizes understanding and is agreeable to this plan. Dr. Ye is my attending. Disposition Clinical Impression: Right hip pain, Right knee pain, Low back pain radiating to right leg Disposition: HOME SELF-CARE Condition: Good Instructions (If sedation given, give patient instructions): Acute Low Back Pain (ED), Lumbar Radiculopathy (ED), P.R.I.C.E. Treatment (ED), Lower Back Exercises (ED) Additional Instructions: Take medication as directed. After you run out of [place] he may take Tylenol or an anti-inflammatory such as Motrin for pain. Do not drink alcohol or operate machinery while taking Flexeril. Rest, ice, and elevate the right knee and hip as much as possible. Follow-up with facility practice specialist in 1-2 weeks if symptoms do not improve. Prescriptions: Cyclobenzaprine [Flexeril] 10 mg PO TID PRN #15 tab PRN Reason: Muscle Spasm HYDROcodone/APAP 10-325MG [[place] 10-325] 1 tab PO Q4HR PRN 3 Days #18 tab PRN Reason: Pain predniSONE 50 mg PO DAILY #5 tab Is patient prescribed a controlled substance at d/c from ED?: Yes If prescribed controlled substance>3 days was MAPS reviewed?: Prescribed <3 Days Referrals: Bertha Paulino MD [Primary Care Provider] - 1-2 days Sal Calix PAC [PHYSICIAN POINT OF CARE SPECIALIST] - 1-2 days
[2022-05-24 13:37] VITALS: BP 120/78; PULSE 78; RESP 18; TEMP 97.2
== END 2022-05-24 13:37 | disposition home or self-care (01) ==
LOC: EC 11:28
DX: M25.561 Pain in right knee (principal); M25.551 Pain in right hip; M54.50 Low back pain, unspecified; J45.909 Unspecified asthma, uncomplicated; I10 Essential (primary) hypertension; Z87.891 Personal history of nicotine dependence; Z88.2 Allergy status to sulfonamides; Z91.048 Other nonmedicinal substance allergy status; W01.0XXA Fall on same level from slipping, tripping and stumbling without subsequent striking against object, initial encounter
CPT/HCPCS: 72110; 73502; 73562; 99283; 96372; J2360; J2930; J1885

== ENCOUNTER → 2022-06-28 | Outpatient (CLI) | payer OTHER | END | disposition home or self-care (01) | LOC: RADUSWWP 15:36 | PROVIDERS: ATTEND Nurse Practitioner Family | DX: Z53.9 Procedure and treatment not carried out, unspecified reason (principal) ==

== ENCOUNTER → 2022-07-02 | Outpatient (CLI) | payer OTHER ==
--- NOTE | 2022-07-03 07:49 | US ---
EXAMINATION TYPE: US thyroid st tissue head/neck DATE OF EXAM: 07/02/2022 COMPARISON: 05/28/2019 CLINICAL HISTORY: 47-year-old female Z86.39 HX OF THYROID NODULE. Thyroid nodule. Hx FN 2019. TECHNIQUE: Multiple sonographic images of the thyroid gland are obtained. FINDINGS: GLAND SIZE: Right Lobe: 5.8 x 2.4 x 2.1 cm Overall Parenchyma: very heterogenous Left Lobe: 6.7 x 3.2 x 2.7 cm Overall Parenchyma: very heterogeneous. Limited. Isthmus Thickness: 1.22 cm NODULES RIGHT: # of nodules measured on right: 0 No distinct nodules seen. LEFT: # of nodules measured on left: 1 1. 2.2 x 1.9 x 1.2 cm, upper medial, solid or almost completely solid, isoechoic TR3 nodule, which is wider than tall, with smooth margins, without echogenic foci. Prior size: 1.4 x 1.3 x 1.3 cm ISTHMUS: # of nodules measured in the isthmus: 2 1. Lower right isthmus: 3.6 x 1.8 x 1.7 cm solid or almost completely solid, heterogeneous isoechoic nodule, which is wider than tall, with smooth margins, without echogenic foci. Prior size: 1.7 x 2.0 x 1.2 cm. Possibly correlates with this prior nodule, difficult to exactly correlate to the prior nodule. 2. Lower left isthmus: 2.8 x 2.9 x 2.4 cm, solid or almost completely solid, isoechoic TR3 nodule , which is wider than tall, with smooth margins, without echogenic foci. Prior size: Difficult to correlate with certainty. Bilateral neck scanned, no evidence of lymphadenopathy. IMPRESSION: There are three TR3 nodules, two in the isthmus and one within the left thyroid lobe. These are all e nlarging, for example, currently measuring up to 3.6 cm versus 1.7 cm, previously. The 2 nodules with in the isthmus meet criteria for FNA. The 2.2 cm left lobe nodule should continue to be closely follo wed. FNAs if it reaches 2.5 cm.
== END | disposition home or self-care (01) ==
LOC: RADUSWWP 15:39
PROVIDERS: ATTEND Nurse Practitioner Family
DX: E04.2 Nontoxic multinodular goiter (principal)
CPT/HCPCS: 76536

== ENCOUNTER 2023-02-28 13:17 | Emergency (ER) | payer MEDICAID, OTHER ==
[2023-02-28 13:26] VITALS: TEMP 97.9
[2023-02-28] MEDS ORDERED: lisinopriL 20 MG TAB PO STA (13:47)
[2023-02-28] MEDS ORDERED: SODIUM CHLORIDE 0.9% 1,000 ML IV STA (13:55)
[2023-02-28] MEDS ORDERED: KETOROLAC 15 MG/ML 1 ML VIAL IVP STA (13:55)
[2023-02-28 13:58] LABS: Basophils % (A) 1 %; Eosinophils # (A) 0.2 k/uL (0-0.7); Eosinophils % (A) 4 %; HGB 12.5 gm/dL (11.4-16.0); Lymphocytes # (A) 2.1 k/uL (1.0-4.8); Lymphocytes % (A) 36 %; MCH 30.7 pg (25.0-35.0); MCHC 34.7 g/dL (31.0-37.0); MCV 88.4 fL (80.0-100.0); Mean Platelet Volume 7.3; Monocytes # (A) 0.3 k/uL (0-1.0); Monocytes % (A) 5 %; Neutrophils % (A) 52 %; Platelet Count 227 k/uL (150-450); RBC 4.07 m/uL (3.80-5.40); RDW 12.9 % (11.5-15.5); WBC 5.8 k/uL (3.8-10.6)
--- NOTE | 2023-02-28 14:00 | ED ---
General Adult HPI - General Chief complaint: Recheck/Abnormal Lab/Rx Stated complaint: HIGH BP-LEG SWELLING Time Seen by Provider: 02/28/23 13:26 Source: patient Mode of arrival: ambulatory Limitations: no limitations - History of Present Illness Initial comments: Dictation was produced using [employer] dictation software. please excuse any grammatical, word or spelling errors. Chief Complaint: 48-year-old female presents to the emergency department for hypertension and rule out heart failure History of Present Illness: Is 48-year-old female she's been 2 weeks without her lisinopril medication. She is not satisfied with her primary care doctor. She is trying to get refills on her blood pressure medications but has been unsucces sful. States that since last couple days she noticed lower extremity edema. She also has a mild headache. She checks her blood pressures at least once every 2-3 weeks. States her blood pressure is normally systolic 150. She checked it today and was 185 systolic. She went to the urgent care was evaluated and redirected to the emergency department. Patient denies any fevers. Denies any numbness in comparison to the arms or legs. Patient states that her headache is mild. Continues to worse headache of her life. Not thunderclap. The ROS documented in this emergency department record has been reviewed and confirmed by me. Those systems with pertinent positive or negative responses h ave been documented in the HPI. All other systems are other negative and/or noncontributory. - Related Data Home Medications Medication Instructions Recorded Confirmed Spironolactone 25 mg PO DAILY 07/05/22 02/28/23 Previous Rx's Medication Instructions Recorded lisinopriL [Zestril] 20 mg PO DAILY 28 Days #28 tab 02/28/23 Allergies Allergy/AdvReac Type Severity Reaction Status Date / Time Sulfa (Sulfonamide Allergy Unknown Verified 02/28/23 14:02 Antibiotics) Childhood adhesive tape AdvReac Rash/Hives Verified 02/28/23 14:02 Review of Systems ROS Statement: Those systems with pertinent positive or pertinent negative responses have been documented in the HPI. ROS Other: All systems not noted in ROS Statement are negative. Past Medical History Past Medical History: Asthma, Hypertension, Mitral Valve Prolapse (MVP) Additional Past Medical History / Comment(s): irregular heart beat History of Any Multi-Drug Resistant Organisms: None Reported Past Surgical History: Section, Cholecystectomy, Orthopedic Surgery Additional Past Surgical History / Comment(s): irregular heart beat, cervical c4,5,6,7 fusion Past Anesthesia/Blood Transfusion Reactions: Motion Sickness Additional Past Anesthesia/Blood Transfusion Reaction / Comment(s): CLAUSTERPHOBIA Past Psychological History: Anxiety, Bipolar, Depression Smoking Status: Former smoker Past Alcohol Use History: Rare Past Drug Use History: Marijuana - Past Family History Father Family Medical History: Myocardial Infarction ([place]), Thyroid Disorder Mother Family Medical History: COPD, Diabetes Mellitus, Hypertension General Exam - General Exam Comments Initial Comments: PHYSICAL EXAM: General Impression: Alert and oriented x3, not in acute distress HEENT: Normocephalic atraumatic, extra-ocular movements intact, pupils equal and reactive to light bilaterally, mucous membranes moist. Cardiovascular: Heart regular rate and rhythm Chest: Able to complete full sentences, no retractions, no tachypnea Abdomen: abdomen soft, non-tender, non-distended, no organomegaly Musculoskeletal: Pulses present and equal in all extremities, 1+ pitting edema Motor: no focal deficits noted Neurological: CN II-XII grossly intact, no focal motor or sensory deficits noted Skin: Intact with no visualized rashes Psych: Normal affect and mood Limitations: no limitations Course Vital Signs 02/28/23 02/28/23 13:24 13:58 Temperature 97.9 F Pulse Rate 74 71 Respiratory 20 21 Rate Blood Pressure 185/115 156/99 O2 Sat by Pulse 99 96 Oximetry EKG Findings - EKG Comments: EKG Findings:: My EKG interpretation: Ventricular rate 66, sinus rhythm,. 133, QRS 98, QTC 421. No PA prolongation, no QTC prolongation, no ST or T-wave changes noted.. Overall, this EKG is unremarkable Medical Decision Making - Medical Decision Making Was pt. sent in by a medical professional or institution (, PA, HAZ TECH, urgent care, hospital, or prison...) When possible be specific @ -No Did you speak to anyone other than the patient for history (EMS, parent, family, police, friend...)? What history was obtained from this source @ -No Did you review nursing and triage notes (agree or disagree)? Why? @ -I reviewed and agree with nursing and triage notes Were old charts reviewed (outside hosp., previous admission, EMS record, old EKG, old radiological studies, urgent care reports/EKG's, prison records)? Report findings @ -No old charts were reviewed Differential Diagnosis (chest pain, altered mental status, abdominal pain women, abdominal pain men, vaginal bleeding, musculoskeletal, weakness, fever, dyspnea, syncope, headache, dizziness, GI bleed, back pain, seizure, CVA, palpatations, mental health)? @ -Heart failure, hypertensive emergency, aortic dissection, intracranial aneurysm EKG interpreted by me (3pts min.). @ -None done X-rays interpreted by me (1pt min.). @ -None done CT interpreted by me (1pt min.). @ -None done U/S interpreted by me (1pt. min.). @ -None done What testing was considered but not performed or refused? (CT, X-rays, U/S, labs)? Why? @ -None What meds were considered but not given or refused? Why? @ -None Did you discuss the management of the patient with other professionals (professionals i.e. , PA, HAZ TECH, lab, RT, psych nurse, social science research assistant, hotel engineer, teacher, executive officer, caseworker intake)? Give summary @ -No Was smoking cessation discussed for >3mins.? @ -No Was critical care preformed (if so, how long)? @ -No Were there social determinants of health that impacted care today? How? (Homelessness, low income, unemployed, alcoholism, drug addiction, transportation, low edu. Level, literacy, decrease access to med. care, retirement, rehab)? @ -Dissatisfied with primary care doctor Was there de-escalation of care discussed even if they declined (Discuss DNR or withdrawal of care, Hospice)? DNR status @ -No What co-morbidities impacted this encounter? (DM, HTN, Smoking, COPD, CAD, Cancer, CVA, ARF, Chemo, Hep., AIDS, mental health diagnosis, sleep apnea, morbid obesity)? @ -None Was patient admitted / discharged? Hospital course, mention meds given and route, prescriptions, significant lab abnormalities, going to OR and other pertinent info. @ -48 y Old female presents emergency department for hypertension. She doesn't have symptoms to suggest intracranial aneurysm. His mild headache. Otherwise no other symptoms of hypertensive emergency. Blood pressure was slightly elevated at 185/115 upon arrival. Patient given her usual home dose of 20 mg of lisinopril. blood pressures improved. Patient reevluated at bedside found in stable medical condition. Patient discharged advised follow-up with primary care doctor. Undiagnosed new problem with uncertain prognosis? @ -No Drug Therapy requiring intensive monitoring for toxicity (Heparin, Nitro, Insulin, Cardizem)? @ -No Were any procedures done? @ -No Diagnosis/symptom? Acute, or Chronic, or Acute on Chronic? Uncomplicated (without systemic symptoms) or Complicated (systemic symptoms)? @ -1. Hypertension, no obvious source, no high-risk features Side effects of treatment? @ -No Exacerbation, Progression, or Severe Exacerbation? @ -No Poses a threat to life or bodily function? How? (Chest pain, [place], [place], pneumonia, PE, COPD, DKA, ARF, appy, cholecystitis, CVA, Diverticulitis, Homicidal, Suicidal, threat to staff... and all critical care pts) @ -No - Lab Data Result diagrams: 02/28/23 13:51 02/28/23 13:51 Lab Results 02/28/23 02/28/23 02/28/23 Range/Units 13:51 13:51 13:51 WBC 5.8 (3.8-10.6) k/uL RBC 4.07 (3.80-5.40) m/uL Hgb 12.5 (11.4-16.0) gm/dL Hct 36.0 (34.0-46.0) % MCV 88.4 (80.0-100.0) fL MCH 30.7 (25.0-35.0) pg MCHC 34.7 (31.0-37.0) g/dL RDW 12.9 (11.5-15.5) % Plt Count 227 (150-450) k/uL MPV 7.3 Neutrophils % 52 % Lymphocytes % 36 % Monocytes % 5 % Eosinophils % 4 % Basophils % 1 % Neutrophils # 3.0 (1.3-7.7) k/uL Lymphocytes # 2.1 (1.0-4.8) k/uL Monocytes # 0.3 (0-1.0) k/uL Eosinophils # 0.2 (0-0.7) k/uL Basophils # 0.0 (0-0.2) k/uL PT 10.2 (9.0-12.0) sec INR 1.0 (<1.2) APTT 22.6 (22.0-30.0) sec Sodium 136 L (137-145) mmol/L Potassium 4.3 (3.5-5.1) mmol/L Chloride 106 (98-107) mmol/L Carbon Dioxide 27 (22-30) mmol/L Anion Gap 3 mmol/L BUN 13 (7-17) mg/dL Creatinine 0.49 L (0.52-1.04) mg/dL Est GFR (CKD-EPI)AfAm >90 (>60 ml/min/1.73 sqM) Est GFR (CKD-EPI)NonAf >90 (>60 ml/min/1.73 sqM) Glucose 187 H (74-99) mg/dL Calcium 8.7 (8.4-10.2) mg/dL Total Bilirubin 0.7 (0.2-1.3) mg/dL AST 28 (14-36) U/L ALT 27 (4-34) U/L Alkaline Phosphatase 62 (38-126) U/L Troponin I (0.000-0.034) ng/mL NT-Pro-B Natriuret Pep pg/mL Total Protein 6.4 (6.3-8.2) g/dL Albumin 3.5 (3.5-5.0) g/dL 02/28/23 02/28/23 Range/Units 13:51 13:51 WBC (3.8-10.6) k/uL RBC (3.80-5.40) m/uL Hgb (11.4-16.0) gm/dL Hct (34.0-46.0) % MCV (80.0-100.0) fL MCH (25.0-35.0) pg MCHC (31.0-37.0) g/dL RDW (11.5-15.5) % Plt Count (150-450) k/uL MPV Neutrophils % % Lymphocytes % % Monocytes % % Eosinophils % % Basophils % % Neutrophils # (1.3-7.7) k/uL Lymphocytes # (1.0-4.8) k/uL Monocytes # (0-1.0) k/uL Eosinophils # (0-0.7) k/uL Basophils # (0-0.2) k/uL PT (9.0-12.0) sec INR (<1.2) APTT (22.0-30.0) sec Sodium (137-145) mmol/L Potassium (3.5-5.1) mmol/L Chloride (98-107) mmol/L Carbon Dioxide (22-30) mmol/L Anion Gap mmol/L BUN (7-17) mg/dL Creatinine (0.52-1.04) mg/dL Est GFR (CKD-EPI)AfAm (>60 ml/min/1.73 sqM) Est GFR (CKD-EPI)NonAf (>60 ml/min/1.73 sqM) Glucose (74-99) mg/dL Calcium (8.4-10.2) mg/dL Total Bilirubin (0.2-1.3) mg/dL AST (14-36) U/L ALT (4-34) U/L Alkaline Phosphatase (38-126) U/L Troponin I <0.012 (0.000-0.034) ng/mL NT-Pro-B Natriuret Pep 142 pg/mL Total Protein (6.3-8.2) g/dL Albumin (3.5-5.0) g/dL Disposition Clinical Impression: Hypertension Disposition: HOME SELF-CARE Condition: Fair Prescriptions: lisinopriL [Zestril] 20 mg PO DAILY 28 Days #28 tab Is patient prescribed a controlled substance at d/c from ED?: No Referrals: Joe Fonseca MD [REFERRING] - 1-2 days Christie Piedra MD [STAFF PHYSICIAN] - 1-2 days Mitchell Hogan MD [STAFF PHYSICIAN] - 1-2 days Donny Yeager MD [REFERRING] - 1-2 days Vlad Cam DO [Doctor of Osteopathic Medicine] - 1-2 days Molina Wright MD [STAFF PHYSICIAN] - 1-2 days Time of Disposition: 16:06
[2023-02-28 14:09] LABS: Partial Thromboplastin Time 22.6 sec (22.0-30.0); Prothrombin Time 10.2 sec (9.0-12.0)
[2023-02-28 14:59] LABS: ALT 27 U/L (4-34); African American GFR (CKD) >90 (>60 ml/min/1.73 sqM); Albumin 3.5 g/dL (3.5-5.0); Anion Gap 3 mmol/L; Blood Urea Nitrogen 13 mg/dL (7-17); Calcium 8.7 mg/dL (8.4-10.2); Carbon Dioxide 27 mmol/L (22-30); Chloride 106 mmol/L (98-107); Glucose 187 mg/dL (74-99); Non-African American GFR(CKD) >90 (>60 ml/min/1.73 sqM); Sodium 136 mmol/L (137-145); Total Bilirubin 0.7 mg/dL (0.2-1.3); Total Protein 6.4 g/dL (6.3-8.2)
[2023-02-28 15:11] LABS: AST 28 U/L (14-36); Alkaline Phosphatase 62 U/L (38-126); Potassium 4.3 mmol/L (3.5-5.1)
[2023-02-28 16:42] VITALS: BP 134/89; PULSE 67; RESP 12
== END 2023-02-28 16:42 | disposition home or self-care (01) ==
LOC: EC 13:17
DX: I10 Essential (primary) hypertension (principal); J45.909 Unspecified asthma, uncomplicated; Z79.899 Other long term (current) drug therapy; Z88.2 Allergy status to sulfonamides; Z91.048 Other nonmedicinal substance allergy status; Z87.891 Personal history of nicotine dependence; Z90.49 Acquired absence of other specified parts of digestive tract
CPT/HCPCS: 36415; 93005; 83880; 80053; 84484; 85025; 85610; 85730; 99284; 96374; 96361; J1885

== ENCOUNTER → 2024-02-17 | Outpatient (CLI) | payer OTHER ==
--- NOTE | 2024-02-18 11:00 | US ---
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 3.7 X 2.1 x 2.4 cm, lower mid, solid or almost completely solid, isoechoic nodule, which is wide r than tall, with ill-defined margins, without echogenic foci. Prior size: 2.2 x 1.2 x 1.9 cm, previous measured under Isthmus .TR3 2. 1.8 X 1.6 x 2.1 cm, upper medial, solid or almost completely solid, isoechoic nodule, which is wider than tall, with ill-defined margins, without echogenic foci. Prior size: 2.2 x 1.9 x 1.2 cm .TR3 ISTHMUS: # of nodules measured in the isthmus: 1 1. 2.9 X 2.4 x 3.0 cm solid or almost completely solid, isoechoic nodule, which is wider than tall, with ill-defined margins, without echogenic foci. Prior size: 2.8 x 2.4 x 2.9 cm .TR3 Bilateral neck scanned, no evidence of lymphadenopathy. IMPRESSION: Mildly Suspicious: FNA if ? 2.5 cm; Follow if ? 1.5 cm at 1, 3, and 5 y 2017 ACR TI-RADS LEVEL: TR3 *Highest TI-RADS level nodule reported
== END | disposition home or self-care (01) ==
LOC: RADUSWWP 15:05
PROVIDERS: ATTEND Family Medicine
DX: E04.1 Nontoxic single thyroid nodule (principal)
CPT/HCPCS: 76536

== ENCOUNTER → 2024-02-24 | Outpatient (CLI) | payer OTHER ==
--- NOTE | 2024-02-25 12:23 | MM ---
Reason for Exam: Screening (asymptomatic). Last mammogram was performed 3 year(s) and 5 month(s) ago. Patient History: Menarche at age 9. First Full-Term at age 19. Postmenopausal. Hormonal Contraceptives, starting at age 37. Maternal grandmother had ovarian cancer. Paternal aunt had ovarian cancer. Risk Values: Tayler 5 year model risk: 0.9%. NCI Lifetime model risk: 8.8%. Prior Study Comparison: 05/21/2012 Bilateral Screening Mammogram, [facility]. 10/10/2020 Bilateral Screening Mammogram, [facility]. Tissue Density: The breasts are heterogeneously dense, which may obscure small masses. Findings: Analyzed By CAD. There is no suspicious group of microcalcifications or new suspicious mass in either breast. Benign appearing calcification within the left breast. Overall Assessment: Benign, BI-RAD 2 Management: Screening Mammogram of both breasts in 1 year. . Patient should continue monthly self-breast exams. A clinical breast exam by your physician is recommended on an annual basis. This exam should not preclude additional follow-up of suspicious palpable abnormalities. Note on Tayler scores and lifetime risk: 1. A Tayler score greater than 3% is considered moderate risk. If this is the case, consider specialist referral to assess eligibility for a risk reducing agent. 2. If overall lifetime risk for the development of breast cancer is 20% or higher, the patient may qualify for future screening with alternating mammogram and breast MRI. Electronically signed and approved by: Jamal Zaldivar M.D. Radiologis
== END | disposition home or self-care (01) ==
LOC: RADMAMWWP 13:00
PROVIDERS: ATTEND Family Medicine
DX: Z12.31 Encounter for screening mammogram for malignant neoplasm of breast (principal); Z78.0 Asymptomatic menopausal state
CPT/HCPCS: 77067

== ENCOUNTER → 2024-03-02 | Outpatient (CLI) | payer OTHER ==
--- NOTE | 2024-03-02 11:51 | FL ---
EXAMINATION TYPE: FL barium swallow DATE OF EXAM: 03/02/2024 CLINICAL INDICATION: 49-year-old female GERD, trouble swallowing and choking for the last 6 months. P atient with ACDF back in 2016. R09.89 OTHER SX INVOLVING CIRC RESP SYSTEMS COMPARISON: None Total Fluoroscopy Time: 2 minutes 24 seconds DAP: 613.09 mGycm2. 75 images obtained. FINDINGS: The swallowing mechanism is normal. There is C4-C7 ACDF present. There may be very slight smooth narr owing of the cervical esophageal lumen opposite the C6 and C7 level. Otherwise, hypopharyngeal anatom y is preserved. The thoracic portion has a normal course and caliber and normal motility. The mucosa is normal and no persistent filling defect is encountered. There is a small sliding hiatal hernia. During Valsalva and turning maneuvers, severe gastroesophagea l reflux is encountered to the upper chest. IMPRESSION: 1. Status post C4-C7 ACDF. It may be very slight, smooth esophageal narrowing/stricture opposite the C6 and C7 level. 2. Small sliding hiatal hernia with severe gastroesophageal reflux.
== END | disposition home or self-care (01) ==
LOC: RADUSWWP 10:00
PROVIDERS: ATTEND Otolaryngology
DX: K44.9 Diaphragmatic hernia without obstruction or gangrene (principal); K21.9 Gastro-esophageal reflux disease without esophagitis; R13.10 Dysphagia, unspecified; R09.89 Other specified symptoms and signs involving the circulatory and respiratory systems; Z98.890 Other specified postprocedural states
CPT/HCPCS: 74220

== ENCOUNTER → 2024-07-06 | Outpatient (CLI) | payer OTHER ==
--- NOTE | 2024-08-04 10:54 | US ---
Melisa Gallegolee ID: [id number] : 1975 EXAMINATION TYPE: US pelvis complete transvag DATE OF EXAM: 07/07/2024 COMPARISON: NONE CLINICAL HISTORY: . 49-year-old female abnormal uterine bleeding, history of ovarian cysts. One previ ous . . LMP 6 years ago. TECHNIQUE: Multiple transabdominal sonographic images of the pelvis were obtained. Transvaginal scann ing was medically necessary to better assess the anatomy. FINDINGS: Uterus: 8.1 x 4.7 x 3.8 cm. Myometrium appears mildly heterogeneous. scar noted along the a nterior lower uterine segment. Endometrium: 0.74 cm. This is thickened for pt being post menopausal with bleeding. Right Ovary: Obscured. Left Ovary: 2.1 x 1.7 x 1.3 cm. Appears wnl. Adnexa: Appear wnl bilaterally Cul de sac: Mild fluid seen within. IMPRESSION: 1. The endometrial stripe is thickened for a postmenopausal female with bleeding at 7.4 mm. Recommend further BENEFITS SPECIALIST evaluation. 2. scar noted. 3. Unable to visualize the right ovary. 4. Mild cul-de-sac free fluid. Unusual in a postmenopausal female. Clinically correlate.
== END | disposition home or self-care (01) ==
LOC: RADUSWWP 16:09
PROVIDERS: ATTEND Family Medicine
DX: N93.9 Abnormal uterine and vaginal bleeding, unspecified (principal); N95.9 Unspecified menopausal and perimenopausal disorder
CPT/HCPCS: 76830; 76856

== ENCOUNTER 2024-12-20 08:11 | Emergency (ER) | payer BC, OTHER ==
[2024-12-20 08:17] VITALS: RESP 18
--- NOTE | 2024-12-20 08:52 | ED ---
Fall HPI - General Chief Complaint: Fall Stated Complaint: Fall-Head injury Time Seen by Provider: 12/20/24 08:23 Source: patient, RN notes reviewed Mode of arrival: ambulatory Limitations: no limitations - History of Present Illness Initial Comments: 49-year-old female presents emergency department chief complaint of syncopal episode. Patient states that she was sick throughout the weekend with nausea vomiting diarrhea states that she had very minimal input. Patient states that she ate a small amount yesterday but states that she went to take a shower today and felt lightheaded and passed out in the shower. She denies any chest pain at this time she does complain of back, neck discomfort. Patient states she feels dehydrated and just does not feel well overall. - Related Data Home Medications Medication Instructions Recorded Confirmed Spironolactone 25 mg PO DAILY 07/05/22 03/31/24 Dulaglutide [Trulicity] 3 mg INJ WE 03/31/24 03/31/24 Empagliflozin [Jardiance] 25 mg PO DAILY 03/31/24 03/31/24 Omeprazole 40 mg PO DAILY 03/31/24 03/31/24 Rosuvastatin Calcium 5 mg PO DAILY 03/31/24 03/31/24 Verapamil HCl [Verapamil ER] 240 mg PO DAILY 03/31/24 03/31/24 lisinopriL 30 mg PO DAILY 03/31/24 03/31/24 metFORMIN HCL [Glucophage] 500 mg PO DAILY 03/31/24 03/31/24 Allergies Allergy/AdvReac Type Severity Reaction Status Date / Time Sulfa (Sulfonamide Allergy Unknown Verified 12/20/24 08:17 Antibiotics) Childhood adhesive tape AdvReac Rash/Hives Verified 12/20/24 08:17 Review of Systems ROS Statement: Those systems with pertinent positive or pertinent negative responses have been documented in the HPI. ROS Other: All systems not noted in ROS Statement are negative. Past Medical History Past Medical History: Asthma, Hypertension, Mitral Valve Prolapse (MVP) Additional Past Medical History / Comment(s): irregular heart beat History of Any Multi-Drug Resistant Organisms: None Reported Past Surgical History: Section, Cholecystectomy, Orthopedic Surgery Additional Past Surgical History / Comment(s): irregular heart beat, cervical c4,5,6,7 fusion Past Anesthesia/Blood Transfusion Reactions: Motion Sickness Additional Past Anesthesia/Blood Transfusion Reaction / Comment(s): CLAUSTERPHOBIA Past Psychological History: Anxiety, Bipolar, Depression Smoking Status: Former smoker Past Alcohol Use History: Occasional Past Drug Use History: Marijuana - Past Family History Father Family Medical History: Myocardial Infarction (MN), Thyroid Disorder Mother Family Medical History: COPD, Diabetes Mellitus, Hypertension General Exam Limitations: no limitations General appearance: alert, in no apparent distress Head exam: Present: atraumatic, normocephalic, normal inspection Eye exam: Present: normal appearance, PERRL, EOMI. Absent: scleral icterus, conjunctival injection, periorbital swelling ENT exam: Present: normal exam, normal oropharynx, mucous membranes moist Neck exam: Present: normal inspection, full ROM. Absent: tenderness, meningismus, lymphadenopathy Respiratory exam: Present: normal lung sounds bilaterally. Absent: respiratory distress, wheezes, rales, rhonchi, stridor Cardiovascular Exam: Present: regular rate, normal rhythm, normal heart sounds. Absent: systolic murmur, diastolic murmur, rubs, gallop, clicks GI/Abdominal exam: Present: soft, normal bowel sounds. Absent: distended, tenderness, guarding, rebound, rigid Course Vital Signs 12/20/24 12/20/24 12/20/24 08:12 09:14 10:21 Temperature 98.0 F 98.1 F Pulse Rate 75 78 Pulse Rate [ 98 Right Sitting Pulse Oximetery ] Pulse Rate [ 99 Right Standing Pulse Oximetery ] Pulse Rate [ 100 Right Supine Pulse Oximetery ] Respiratory 18 18 Rate Blood Pressure 151/96 141/78 Blood Pressure 140/89 [Right Arm Sitting] Blood Pressure 147/90 [Right Arm Standing] Blood Pressure 137/92 [Right Arm Supine] O2 Sat by Pulse 98 98 Oximetry Medical Decision Making - Medical Decision Making Was pt. sent in by a medical professional or institution (, PA, EXERCISE TEACHER, urgent care, hospital, or shelter...) When possible be specific @ -No Did you speak to anyone other than the patient for history (EMS, parent, family, police, friend...)? What history was obtained from this source @ -No Did you review nursing and triage notes (agree or disagree)? Why? @ -I reviewed and agree with nursing and triage notes Were old charts reviewed (outside hosp., previous admission, EMS record, old EKG, old radiological studies, urgent care reports/EKG's, shelter records)? Report findings @ -No old charts were reviewed Differential Diagnosis (chest pain, altered mental status, abdominal pain women, abdominal pain men, vaginal bleeding, weakness, fever, dyspnea, syncope, headache, dizziness, GI bleed, back pain, seizure, CVA, palpatations, mental health, musculoskeletal)? @ -Differential Syncope: Valvular disease, hypertrophic cardiomyopathy, pulmonary embolism, tamponade, tachycardia, bradycardia, MN, hypovolemia, hemorrhage, dissection, anemia, intracranial hemorrhage, seizure, hypoglycemia, carbon monoxide poisoning, this is not meant to be an all-inclusive list. EKG interpreted by me (3pts min.). @ -As above X-rays interpreted by me (1pt min.). @ -Chest x-ray shows no acute cardiopulmonary process. CT interpreted by me (1pt min.). @ -CT brain, C-spine showing no acute intracranial mass, mass effect or cervical fracture. U/S interpreted by me (1pt. min.). @ -None done What testing was considered but not performed or refused? (CT, X-rays, U/S, labs)? Why? @ -None What meds were considered but not given or refused? Why? @ -None Did you discuss the management of the patient with other professionals (professionals i.e. , PA, EXERCISE TEACHER, lab, RT, psych nurse, social services coordinator, food products sales representative, teacher, protocol officer, case assembler)? Give summary @ -No Was smoking cessation discussed for >3mins.? @ -No Was critical care preformed (if so, how long)? @ -No Were there social determinants of health that impacted care today? How? (Homelessness, low income, unemployed, alcoholism, drug addiction, transportation, low edu. Level, literacy, decrease access to med. care, detention, rehab)? @ -No Was there de-escalation of care discussed even if they declined (Discuss DNR or withdrawal of care, Hospice)? DNR status @ -No What co-morbidities impacted this encounter? (DM, HTN, Smoking, COPD, CAD, Cancer, CVA, ARF, Chemo, Hep., AIDS, mental health diagnosis, sleep apnea, m orbid obesity)? @ -None Was patient admitted / discharged? Hospital course, mention meds given and r oute, prescriptions, significant lab abnormalities, going to OR and other pertinent info. @ -Discharge patient presented after syncopal episode, head injury, neck pain. CT was obtained given mechanism of injury and syncopal episode. Patient had negative work otherwise feels great improved with IV fluids. Return parameters edwin. Undiagnosed new problem with uncertain prognosis? @ -No Drug Therapy requiring intensive monitoring for toxicity (Heparin, Nitro, Insulin, Cardizem)? @ -No Were any procedures done? @ -No Diagnosis/symptom? @ -Syncope, dehydration Acute, or Chronic, or Acute on Chronic? @ -Acute Uncomplicated (without systemic symptoms) or Complicated (systemic symptoms)? @ -Comp Side effects of treatment? @ -No Exacerbation, Progression, or Severe Exacerbation? @ -No Poses a threat to life or bodily function? How? (Chest pain, USA, MN, pneumonia, PE, COPD, DKA, ARF, appy, cholecystitis, CVA, Diverticulitis, Homicidal, Suicidal, threat to staff... and all critical care pts) @ -No - Lab Data Result diagrams: 12/20/24 08:52 12/20/24 08:52 Lab Results 12/20/24 12/20/24 12/20/24 Range/Units 08:52 08:52 08:52 WBC 7.0 (3.8-10.6) k/uL RBC 4.44 (3.80-5.40) m/uL Hgb 13.6 (11.4-16.0) gm/dL Hct 41.3 (34.0-46.0) % MCV 93.0 (80.0-100.0) fL MCH 30.6 (25.0-35.0) pg MCHC 32.9 (31.0-37.0) g/dL RDW 12.9 (11.5-15.5) % Plt Count 238 (150-450) k/uL MPV 7.8 Neutrophils % 62 % Lymphocytes % 28 % Monocytes % 5 % Eosinophils % 4 % Basophils % 1 % Neutrophils # 4.3 (1.3-7.7) k/uL Lymphocytes # 1.9 (1.0-4.8) k/uL Monocytes # 0.3 (0-1.0) k/uL Eosinophils # 0.3 (0-0.7) k/uL Basophils # 0.0 (0-0.2) k/uL PT 10.7 (10.0-12.5) sec INR 1.0 (<1.2) APTT 22.9 (22.0-30.0) sec Sodium 139 (137-145) mmol/L Potassium 4.7 (3.5-5.1) mmol/L Chloride 108 H (98-107) mmol/L Carbon Dioxide 22 (22-30) mmol/L Anion Gap 9 mmol/L BUN 19 H (7-17) mg/dL Creatinine 0.63 (0.52-1.04) mg/dL Est GFR (CKD-EPI)AfAm >90 (>60 ml/min/1.73 sqM) Est GFR (CKD-EPI)NonAf >90 (>60 ml/min/1.73 sqM) Glucose 152 H (74-99) mg/dL Calcium 9.4 (8.4-10.2) mg/dL Magnesium 1.7 (1.6-2.3) mg/dL Total Bilirubin 1.0 (0.2-1.3) mg/dL AST 35 (14-36) U/L ALT 22 (4-34) U/L Alkaline Phosphatase 32 L (38-126) U/L Troponin I (0.000-0.034) ng/mL Total Protein 6.5 (6.3-8.2) g/dL Albumin 3.9 (3.5-5.0) g/dL 12/20/24 Range/Units 08:52 WBC (3.8-10.6) k/uL RBC (3.80-5.40) m/uL Hgb (11.4-16.0) gm/dL Hct (34.0-46.0) % MCV (80.0-100.0) fL MCH (25.0-35.0) pg MCHC (31.0-37.0) g/dL RDW (11.5-15.5) % Plt Count (150-450) k/uL MPV Neutrophils % % Lymphocytes % % Monocytes % % Eosinophils % % Basophils % % Neutrophils # (1.3-7.7) k/uL Lymphocytes # (1.0-4.8) k/uL Monocytes # (0-1.0) k/uL Eosinophils # (0-0.7) k/uL Basophils # (0-0.2) k/uL PT (10.0-12.5) sec INR (<1.2) APTT (22.0-30.0) sec Sodium (137-145) mmol/L Potassium (3.5-5.1) mmol/L Chloride (98-107) mmol/L Carbon Dioxide (22-30) mmol/L Anion Gap mmol/L BUN (7-17) mg/dL Creatinine (0.52-1.04) mg/dL Est GFR (CKD-EPI)AfAm (>60 ml/min/1.73 sqM) Est GFR (CKD-EPI)NonAf (>60 ml/min/1.73 sqM) Glucose (74-99) mg/dL Calcium (8.4-10.2) mg/dL Magnesium (1.6-2.3) mg/dL Total Bilirubin (0.2-1.3) mg/dL AST (14-36) U/L ALT (4-34) U/L Alkaline Phosphatase (38-126) U/L Troponin I <0.012 (0.000-0.034) ng/mL Total Protein (6.3-8.2) g/dL Albumin (3.5-5.0) g/dL - EKG Data -: EKG Interpreted by Me EKG Comments: EKG performed at 8: 38 sinus rhythm with short AL rate of 67 AL 116 QRS 101 QT/QTc 415/420 Disposition Clinical Impression: Vasovagal syncope, Dehydration Disposition: HOME SELF-CARE Condition: Stable Instructions (If sedation given, give patient instructions): Syncope (ED) Additional Instructions: Please return to the Emergency Department if symptoms worsen or any other concerns. Is patient prescribed a controlled substance at d/c from ED?: No Referrals: Donny Yeager MD [Primary Care Provider] - 1-2 days Time of Disposition: 10:03
[2024-12-20] MEDS: SODIUM CHLORIDE 0.9% 1,000 ML IV STA (08:56)
[2024-12-20] MEDS: ACETAMINOPHEN TAB 325 MG TAB PO STA (09:09)
[2024-12-20 09:23] LABS: Basophils % (A) 1 %; Eosinophils # (A) 0.3 k/uL (0-0.7); Eosinophils % (A) 4 %; HCT 41.3 % (34.0-46.0); HGB 13.6 gm/dL (11.4-16.0); Lymphocytes # (A) 1.9 k/uL (1.0-4.8); Lymphocytes % (A) 28 %; MCH 30.6 pg (25.0-35.0); MCHC 32.9 g/dL (31.0-37.0); Mean Platelet Volume 7.8; Monocytes # (A) 0.3 k/uL (0-1.0); Monocytes % (A) 5 %; Neutrophils # (A) 4.3 k/uL (1.3-7.7); Neutrophils % (A) 62 %; Platelet Count 238 k/uL (150-450); RBC 4.44 m/uL (3.80-5.40); RDW 12.9 % (11.5-15.5)
--- NOTE | 2024-12-20 09:25 | XR ---
EXAMINATION TYPE: XR chest 2V DATE OF EXAM: 12/20/2024 9:20 AM COMPARISON: Chest radiographs from 07/05/2020 TECHNIQUE: XR chest 2V Frontal and lateral views of the chest. CLINICAL INDICATION:Female, 49 years old with history of syncope; FINDINGS: Lungs/Pleura: There is no evidence of pleural effusion, focal consolidation, or pneumothorax. Pulmonary vascularity: Unremarkable. Heart/mediastinum: Cardiomediastinal silhouette is unremarkable. Musculoskeletal: No acute osseous pathology. Mild multilevel degenerative disc disease. Anterior cerv ical fusion hardware. Other: Cholecystectomy clips in the right upper quadrant. IMPRESSION: No acute cardiopulmonary disease/process. [facility], , 12/20/2024 9:23 AM
[2024-12-20 09:32] LABS: Partial Thromboplastin Time 22.9 sec (22.0-30.0); Prothrombin Time 10.7 sec (10.0-12.5)
--- NOTE | 2024-12-20 09:43 | CT ---
EXAMINATION TYPE: CT brain cspine wo con CT DLP: 1462.9 mGycm, Automated exposure control for dose reduction was used. DATE OF EXAM: 12/20/2024 9:28 AM COMPARISON: CT brain 07/05/2022, CT brain C-spine 12/10/2018. CLINICAL INDICATION:Female, 49 years old with history of trauma,syncope; syncope, fall and hit head, dizziness. TECHNIQUE: Brain: Multiple axial CT images of the brain were obtained without IV contrast. Cspine: Axial CT images from the skull base to the inferior aspect of T2 we obtained without intraven ous contrast. Coronal and sagittal reformatted images were also reviewed. FINDINGS: Brain: Extra-axial spaces: No abnormal extra-axial fluid collections. Ventricular system: Within normal limits Cerebral parenchyma: No acute intraparenchymal hemorrhage or mass effect. The ramirez-white junction is well differentiated. Cerebellum: Unremarkable. Mass effect: No evidence of midline shift. Intracranial vasculature: unremarkable Soft tissues: Normal. Calvarium/osseous structures: No depressed skull fracture. Paranasal sinuses and mastoid air cells: Clear. Visualized orbits: Orbital contents are intact. Cervical spine: Fracture: None. Osseous structures: Postsurgical changes from anterior cervical fusion C4 through C7 with fixation pl ate and disc spacers. Hardware appears intact with appropriate alignment. Anterior osteophytosis at C 2-C3 and C3-C4. Vertebral alignment: Grade 1 anterolisthesis of C2 on C3 redemonstrated. Spinal canal/Neural Foramina: Central disc protrusion with mild to moderate central canal stenosis at C3-C4. Facet joint uncovertebral joint arthropathy scattered throughout the cervical spine with vary ing degrees of neural foraminal stenosis. Neck soft tissues: Prevertebral soft tissues are within normal limits. Other: The airway is patent. The lung apices are clear. Thyromegaly with macrocalcification within th e left thyroid lobe. IMPRESSION: 1. No acute intracranial process. 2. No evidence of cervical spine fracture. 3. Postsurgical changes from ACDF C3-C7. Hardware appears intact. 4. Multilevel degenerative disc disease with prominent disc protrusion at C3-C4 causing mild to mode rate central canal stenosis. 5. Similar grade 1 anterolisthesis of C2 on C3. 6. Thyromegaly. [facility], , 12/20/2024 9:40 AM
[2024-12-20 09:47] LABS: ALT 22 U/L (4-34); African American GFR (CKD) >90 (>60 ml/min/1.73 sqM); Anion Gap 9 mmol/L; Blood Urea Nitrogen 19 mg/dL (7-17); Calcium 9.4 mg/dL (8.4-10.2); Carbon Dioxide 22 mmol/L (22-30); Chloride 108 mmol/L (98-107); Glucose 152 mg/dL (74-99); Non-African American GFR(CKD) >90 (>60 ml/min/1.73 sqM); Sodium 139 mmol/L (137-145)
[2024-12-20 09:53] LABS: Magnesium 1.7 mg/dL (1.6-2.3); Potassium 4.7 mmol/L (3.5-5.1); Total Protein 6.5 g/dL (6.3-8.2)
[2024-12-20 09:54] LABS: AST 35 U/L (14-36); Albumin 3.9 g/dL (3.5-5.0); Alkaline Phosphatase 32 U/L (38-126)
[2024-12-20 10:23] VITALS: BP 141/78; PULSE 78; TEMP 98.1
== END 2024-12-20 10:23 | disposition home or self-care (01) ==
LOC: EC 08:11
DX: S09.90XA Unspecified injury of head, initial encounter (principal); R55 Syncope and collapse; E86.0 Dehydration; M54.2 Cervicalgia; Z87.891 Personal history of nicotine dependence; Z88.2 Allergy status to sulfonamides; Z91.048 Other nonmedicinal substance allergy status; Y92.041 Bathroom in boarding-house as the place of occurrence of the external cause
CPT/HCPCS: 36415; 70450; 71046; 72125; 80053; 83735; 84484; 85025; 85610; 85730; 93005; 96360; 99284

== ENCOUNTER → 2025-01-07 | Outpatient (CLI) | payer BC ==
--- NOTE | 2025-01-13 11:38 | MR ---
EXAMINATION TYPE: MR brain wo con DATE OF EXAM: 01/07/2025 2:42 PM COMPARISON: CT 12/20/2024 CLINICAL INDICATION: Female, 49 years old with history of R51.9 HEADACHE, UNSPECIFIED, Headaches, Diz ziness, Blacking out, Forgetfulness TECHNIQUE: Multiplanar, multisequence images of the brain and brainstem were acquired without IV con trast. Diffusion weighted imaging is performed. FINDINGS: No evidence for acute infarction, hemorrhage, mass, mass effect, midline shift, herniation, effacemen t of basal cisterns, or extra-axial fluid collection. The ventricles and sulci are age-appropriate. Very mild volume loss overlying the bilateral cerebral convexities. Major intracranial flow voids are intact. Dominant right vertebral artery. T2/FLAIR weighted images show only a couple punctate foci of bright white matter change in the subcor tical regions particularly in the subinsular and anterior frontal lobes. Midline structures demonstrate normal morphology. The craniocervical junction is normal. Mild mucosal thickening within the ethmoid air cells. Globes are intact. IMPRESSION: 1. No acute intracranial abnormality seen. 2. Trace burden of T2 bright white matter change, nonspecific, probably relating to changes of chroni c small vessel ischemic disease. Findings may also be seen as a sequela of chronic migraines. Clinica lly correlate. 3. Mild chronic ethmoid sinus disease. [facility], Workstation: [id number], 01/13/2025 11:35 AM
== END | disposition home or self-care (01) ==
LOC: RADMRIMAIN 14:13
PROVIDERS: ATTEND Family Medicine
DX: J32.2 Chronic ethmoidal sinusitis (principal); R90.82 White matter disease, unspecified
CPT/HCPCS: 70551